=== PATIENT | male | born 1950 | race Caucasian/White ===

== ENCOUNTER → 2017-12-21 13:10 | Outpatient (CLI) | payer MEDICARE, BC, SELFPAY ==
--- NOTE | 2017-12-21 13:22 | CT_ITS ---
CT lung screening EXAM: CT LUNG LOW DOSE WO CONTRAST COMPARISON: 06/21/2016 HISTORY: 67-year-old male with 60 pack-year smoking history asymptomatic ITS.REASON: HX TOBACCO USE ORDERING PHYSICIAN: John Candelaria MD PATIENT AGE: 67 years TECHNIQUE: The exam was performed on a GE Light Speed [address] scanner using 2.90 mGy CTDI. A low dose helical CT CHEST was performed on a multi-detector scanner. All CT scans at the facility use one or more dose reduction, viz: automated exposure control; ma/kV adjustment per patient size (including targeted exams where dose is matched to indication; i.e. head); or iterative reconstruction technique. The LDCT was performed in a facility that meets the criteria for the screening program. Data regarding this exam was submitted to ACR which is an approved registry. The order for this exam indicates that it came as a result of a lung cancer screening counseling shard decision-making visit that included all the elements required of such a visit including smoking cessation. The radiologist interpreting this exam meets the CMS criteria for the LDCT lung cancer screening program. The exam is reported using the Lung-RADS classification scale and reported to the ACR registry. NOTE: This study was performed for the specific purposes of lung cancer screening and is not an alternative to diagnostic chest CT. RADIATION DOSE: CTDI vol(CT dose Index-volume) = 2.90mG DLP (Dose Length Product) = 110.60 mGcm FINDINGS: No change in the 4 mm nodule in the right apex and 5 mm nodule in the posterior aspect of the right upper lobe. Calcified granuloma right upper lobe unchanged. 3 mm nodule left upper lobe noted not changed compared to 12/08/2015. There are extensive coronary artery calcifications. There is pectus carinatum IMPRESSION: 1. Lung RADS Category: 2, benign 2. Other findings: Coronary artery disease RECOMMENDATIONS: 12 month LDCT follow-up
== END ==
PROVIDERS: Family Provider Family Medicine; PCP Family Medicine; Visit Provider Family Medicine
DX: Z12.2 Encounter for screening for malignant neoplasm of respiratory organs (principal); Z87.891 Personal history of nicotine dependence

== ENCOUNTER 2018-07-05 13:00 | Outpatient (RCR) | payer MEDICARE, SELFPAY ==
--- NOTE | 2018-06-25 15:34 | HMH.PTOPEV ---
PT Outpatient Evaluation Rehab PT Outpatient Evaluation Start: 06/25/18 15:26 Freq: Status: Active Protocol: Document 06/25/18 15:27 PHOKAIT (Rec: 06/25/18 15:34 PHORNE [id number]) Electronically Signed By Marcio Calderon, PT 06/25/18 15:27 Outpatient Therapy Subjective History Subjective History Pt is 68 yowm who presents with c/o low back pain worse x ~ 2 mos, with intermittent pain into the left buttock. He reports hx of DDD with chronic low back pain, but current symptoms feel different. He reports no numbness or tingling in his left LE. He also reports that prescribed muscle relaxers and massages help to decrease the pain for short periods. Chief Complaint Pain Symptom Type Ache Sharp Symptoms Relieved By Rest/Positioning Prior Functional Limitations None Current Functional Limitations Lifting Driving Symptom Description Constant but Variable Level of pain today (0-10) 2 Pain scale - at its worst (0-10) 7 Lumbopelvic Eval Palapation tenderness left Lumbar/Sacral Palpation Findings Tenderness Lumbar/Sacral Palpation Overall Comment quad lumborum Accessory Movement L-spine Vertebrae Accessory Movements Central P/A [place] that Elicit Symptoms L2 bilateral L3 bilateral L4 bilateral L5 bilateral Range of Motion Lumbar Spine ROM Reason Not Measured Within Functional Limits Manual Muscle Test Bilateral Knee Extension Strength Grade 5 Normal Knee Flexion Strength Grade 5 Normal Hip Flexion Strength Grade 5 Normal Hip Abduction Strength Grade 5 Normal Hip Adduction Strength Grade 5 Normal Hip External Rotation Strength Grade 5 Normal Hip Internal Rotation Strength Grade 5 Normal Hip Extension Strength Grade 5 Normal Gluteus Shalom Strength Grade 5 Normal Extensor Hallucis Longus Strength Grade 5 Normal Ankle Dorsiflexion Strength Grade 5 Normal Gastronemius/Soleus Strength Grade 5 Normal DTR Rt Patellar 2+ Lt Patellar 2+ Rt Gastroc/Soleus 2+ Lt Gastroc/Soleus 2+ Special Tests Hip Scouring (Quadrant) Test Negative Left Negative Right Hip Robles (RICARDO) Test Negative Left N
== END 2018-07-05 13:05 | disposition home or self-care (01) ==
LOC: PT 13:00
PROVIDERS: Visit Provider Nurse Practitioner Family
DX: M54.5 Low back pain (principal)
CPT/HCPCS: 97010; 97014; 97035; 97110; 97140; 97163; G0283

== ENCOUNTER → 2018-07-12 13:26 | Outpatient (CLI) | payer MEDICARE, SELFPAY ==
--- NOTE | 2018-07-12 13:29 | XR_ITS ---
XR shoulder LT min 2V HISTORY: Left shoulder pain with limited range of motion ITS.REASON: ROTATOR CUFF SYNDROME ORDERING PHYSICIAN: John Candelaria MD PATIENT AGE: 68 years Comparison: None FINDINGS: No fracture or dislocation. No lytic or blastic change. There is normal mineralization. The joint spaces are well-preserved. No significant degenerative/arthritic changes. No erosive changes evident. No subacromial stenosis IMPRESSION: Negative, no acute finding
== END ==
PROVIDERS: PCP Family Medicine; Visit Provider Family Medicine
DX: M75.102 Unspecified rotator cuff tear or rupture of left shoulder, not specified as traumatic (principal)
CPT/HCPCS: 73030

== ENCOUNTER 2018-08-24 13:00 | Outpatient (RCR) | payer MEDICARE, SELFPAY ==
--- NOTE | 2018-08-06 15:58 | HMH.OTOPEV ---
OT Inpatient Evaluation Rehab OT Outpatient Eval Start: 08/06/18 15:26 Freq: Status: Active Protocol: Document 08/06/18 15:34 RMMARANDA (Rec: 08/06/18 15:58 [id number] Electronically Signed By Fatmata Urbina OT 08/06/18 15:34 Outpatient Therapy Subjective History Subjective History Pt is a 68 year old male who reports to therapy for initial evaluation to left shoulder. Pt reports ~2-3 month ago he began having pain in the left shoulder/deltoid area. Pt does not recall a specific injury that would have caused the pain. Pt reports recently he has began having pain in the right shoulder as well, in the same area. 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 Pt demonstrates with a slight decrease in AROM/strength in left shoulder. Pt will continue to be seen twice a week to address these deficits . Pt's right shoulder will be monitored to see if symptoms increase. Chief Complaint Pain Weakness Symptom Type Ache Throb Sharp Dull Stabbing Burning Symptoms Relieved By Rest/Positioning Symptoms Aggravated By Physical Activity Twisting Lifting Prior Functional Limitations None Current Functional Limitations Reaching Lifting Housework Dressing Recreation Activity Symptom Description Intermittent Activity Dependent Level of pain today (0-10) 3 Pain scale - at its best (0-10) 0 Pain scale - at its worst (0-10) 8 Shoulder/Elbow Eval Shoulder Objective Measurements Shoulder ROM Right Shoulder ROM Limitations Pain Shoulder Abduction Active Range of 180 degrees Motion (degrees) Shoulder Flexio
== END 2018-08-24 13:05 | disposition home or self-care (01) ==
LOC: OT 13:00
PROVIDERS: Visit Provider Family Medicine
DX: M75.102 Unspecified rotator cuff tear or rupture of left shoulder, not specified as traumatic (principal)
CPT/HCPCS: 97014; 97035; 97110; 97165; G0283

== ENCOUNTER → 2018-09-10 10:00 | Outpatient (CLI) | payer MEDICARE, SELFPAY ==
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
== END ==
PROVIDERS: PCP Family Medicine; Visit Provider Family Medicine
DX: M75.102 Unspecified rotator cuff tear or rupture of left shoulder, not specified as traumatic (principal)
CPT/HCPCS: 73552

== ENCOUNTER → 2018-09-17 14:17 | Outpatient (CLI) | payer MEDICARE, SELFPAY ==
--- NOTE | 2018-09-17 14:19 | MR_ITS ---
MR shoulder LT wo con Ordering Physician: John Candelaria MD Patient Age: 68 years: Male HISTORY: ITS.REASON: ROTATOR CUFF SYNDROME OF LEFT SHOULDER Left shoulder pain when lifting and raising arm above head. Symptoms 6-8 months. No trauma TECHNIQUE: Multiplanar multisequence imaging performed on 1.5 the MR right. COMPARISON : Previous left shoulder radiograph 07/12/2018 from [facility] No full-thickness rotator cuff tear. Supraspinatus tendon is intact. But with minor increased signal at critical zone which may reflect some minimal tendinopathy. Acromion fairly neutral but there is slight slight narrowing the subacromial space 5.5 mm likely contributes to mild impingement upon supraspinatus complex. Subscapularis. Tendon intact. Infraspinatus tendon appears intact. Muscles rotator cuff remain well-developed and intact. Biceps tendon most likely intact although difficult to visualize just above the bicipital groove Does seem to be abnormal increased signal at at base of superior labrum and at anterosuperior superior labrum glenoid labrum. The signal beneath the labrum is greater than typically-greater undercutting appearance. Overall findings suspect for possible labral tear... Warrant clinical consideration & correlation .. Small joint effusion with fluid extending towards subdeltoid. AC joint. Mild arthropathy mild hypertrophic changes. . IMPRESSION...... Suggestion Mild tendinopathy supraspinatus tendon, but no full-thickness rotator cuff tear.. Slightly narrowed subacromial space. Mild AC joint arthropathy Findings are suspect for minimal tear at superior labrum, extending towards superior/anterior labrum.. Clinical correlation required..
== END ==
PROVIDERS: PCP Family Medicine; Visit Provider Family Medicine
DX: M75.102 Unspecified rotator cuff tear or rupture of left shoulder, not specified as traumatic (principal)
CPT/HCPCS: 73221

== ENCOUNTER → 2019-02-04 07:41 | Outpatient (CLI) | payer MEDICARE, SELFPAY ==
--- NOTE | 2019-02-04 07:45 | CT_ITS ---
CT lung screening EXAM: CT LUNG LOW DOSE WO CONTRAST HISTORY: 60 pack-year smoking history, asymptomatic for lung cancer ITS.REASON: HX TOBACCO USE ORDERING PHYSICIAN: Andreina Saravia APRN PATIENT AGE: 68 years COMPARISON: None TECHNIQUE: The exam was performed on a GE Light Speed [address] scanner using 2.90 mGy CTDI. A low dose helical CT CHEST was performed on a multi-detector scanner. All CT scans at the facility use one or more dose reduction, viz: automated exposure control, ma/kV adjustment per patient size (including targeted exams where dose is matched to indication, i.e. head), or iterative reconstruction technique. The LDCT was performed in a facility that meets the criteria for the screening program. Data regarding this exam was submitted to ACR which is an approved registry. The order for this exam indicates that it came as a result of a lung cancer screening counseling shard decision-making visit that included all the elements required of such a visit including smoking cessation. The radiologist interpreting this exam meets the CMS criteria for the LDCT lung cancer screening program. The exam is reported using the Lung-RADS classification scale and reported to the ACR registry. NOTE: This study was performed for the specific purposes of lung cancer screening and is not an alternative to diagnostic chest CT. RADIATION DOSE: CTDI vol(CT dose Index-volume) = 2.90mG DLP (Dose Length Product) = 115.94 mGcm FINDINGS: Diffuse coronary artery calcifications are noted. There is 2 cm isodensity projecting off the posterior aspect of the right kidney and may be due to a developing cyst which could be confirmed with ultrasound. COPD. Pectus carinatum No change 4 mm nodule right apex IMPRESSION: 1. Lung RADS Category: 2, benign 2. Other findings: COPD, coronary artery disease, possible right renal cyst which confirmed with ultrasound RECOMMENDATIONS: 12 month LDCT follow-up Consider right renal ultrasound
== END ==
PROVIDERS: PCP Nurse Practitioner Family; Visit Provider Nurse Practitioner Family
DX: Z12.2 Encounter for screening for malignant neoplasm of respiratory organs (principal); Z87.891 Personal history of nicotine dependence

== ENCOUNTER 2019-05-01 08:30 | Outpatient (RCR) | payer MEDICARE, SELFPAY ==
--- NOTE | 2019-04-05 09:47 | HMH.PTOPEV ---
PT Outpatient Evaluation Rehab PT Outpatient Evaluation Start: 04/05/19 08:54 Freq: Status: Active Protocol: Document 04/05/19 09:40 WINIFRED (Rec: 04/05/19 09:47 PHORTIANNA [id number]) Electronically Signed By Marcio Calderon, PT 04/05/19 09:40 Outpatient Therapy Subjective History Subjective History Pt is 69 yowm who presents with c/o pain in post left hip x 2-3 wks with insidious onset. He now reports pain also in post left thigh and post left calf. He has tenderness to palpation only on lateral left thigh and no c /o numbness or tingling. He reports intermittent sharp pains and pain is worse with prolonged walking. He has hx of DDD, CAD, COPD, GERD, B partial knee replacement, HTN, HL. Chief Complaint Pain Symptom Type Ache,Throb,Sharp Symptoms Relieved By Rest/Positioning Symptoms Aggravated By Physical Activity,Walking Prior Functional Limitations None Current Functional Limitations Walking Symptom Description Constant but Variable Level of pain today (0-10) 3 Pain scale - at its worst (0-10) 6 Hip/Knee Eval Palpation Tenderness left Hip Palpation Findings Tenderness MMT Hip Flexion Strength Grade 4 Good Hip Abduction Strength Grade 4 Good Hip Adduction Strength Grade 5 Normal Hip Extension Strength Grade 5 Normal Gluteus Shalom Strength Grade 5 Normal Hip External Rotation Strength Grade 5 Normal Hip Internal Rotation Strength Grade 5 Normal Knee Extension Strength Grade 5 Normal Knee Flexion Strength Grade 5 Normal Special Tests Hip Bowstring (Cram) Test Negative Left,Negative Right Sciatic Nerve Tension Test Negative Left,Negative Right Hip Scouring (Quadrant) Test Negative Left,Negative Right Outpatient Therapy Assessment Impairments Problems/Impairmments Palpation Tenderness,Impaired Strength,Impaired Walking, Impaired Recreational Activities,Subjective C/O Pain ,Impaired Self Care/Self Management Prognosis Rehab Potential Good Clinical Impression Consistent with Diagnosis Yes Short Term Goals Number of Weeks 4 Decreased Palpation Tenderness Yes: to min Increase Strength Yes: left LE 4+/5 throughout Increase Ability
== END 2019-05-01 08:35 | disposition home or self-care (01) ==
LOC: PT 08:30
PROVIDERS: PCP Nurse Practitioner Family; Visit Provider Family Medicine
DX: M25.552 Pain in left hip (principal); M76.32 Iliotibial band syndrome, left leg
CPT/HCPCS: 97010; 97014; 97033; 97035; 97110; 97140; 97163; G0283

== ENCOUNTER → 2020-03-24 09:57 | Outpatient (CLI) | payer MEDICARE, SELFPAY ==
--- NOTE | 2020-03-24 | MR_ITS ---
PROCEDURE: MR LUMBAR SPINE WO CON CLINICAL INDICATION: DDD Low back pain COMPARISON: No exams were available for comparison TECHNIQUE: Standard multiplanar multiecho sequences are performed without contrast. 3-D MIP and myelographic images are also rendered and reviewed FINDINGS: There is normal alignment. The spinal cord ends at the L1 level. There is multilevel lumbar spondylosis as detailed below. T11-T12: Mild degenerative disc disease with anterior osteophytes. T12-L1: Mild degenerative disc disease with anterior osteophytes and minimal bulging disc. L1-L2: Degenerate disc disease with minimal bulging disc with facet ligamentum hypertrophy and anterior osteophytes. L2-L3: Degenerate disc disease with bulging disc with facet ligamentum hypertrophy with 3 mm retrolisthesis of L2. Mild bilateral lateral recess and foraminal narrowing. L3-L4: Degenerate disc disease with bulging disc with moderate facet and ligamentum hypertrophy causing transverse narrowing of the canal. There is moderate to severe bilateral lateral recess and foraminal narrowing. There is 3 mm retrolisthesis of L3 on L4 L4-5: Degenerative disc disease with bulging disc along with moderate facet and ligamentum hypertrophy with transverse narrowing of the canal and moderate to severe bilateral lateral recess and foraminal narrowing. The canal measures 8 mm transverse L5-S1: Degenerative disc disease with bulging disc along with moderate right facet and ligamentum hypertrophy and moderate to severe left facet and ligamentum hypertrophy with resultant moderate to severe right foraminal narrowing and severe left foraminal narrowing along with moderate bilateral lateral recess narrowing. No extruded herniated disc is evident. There are bilateral renal cortical cysts IMPRESSION: Abnormal MRI of the lumbar spine with multilevel lumbar spondylosis with resultant transverse narrowing of the canal, lateral recess and foraminal narrowing. Please see above for detailed description at each level. Dictated by: Peterson Cohn MD 03/25/2020 12:23 Peterson Cohn MD in [place] 03/25/2020 12:23
== END ==
PROVIDERS: PCP Family Medicine; Visit Provider Anesthesiology Pain Medicine
DX: M53.9 Dorsopathy, unspecified (principal)
CPT/HCPCS: 72148; 76376

== ENCOUNTER → 2020-08-28 13:02 | Outpatient (CLI) | payer MEDICARE, SELFPAY ==
--- NOTE | 2020-08-28 13:07 | US_ITS ---
APPROVED REPORT Exam Type: Lower Extremity Segmental Pressures Building Construction Supervisor: Andreina Mills RVT Indications Claudication: Bilaterally Cyanosis PT'S 2ND TOE ON RIGHT FOOT IS BLUISH COLORED X SEVERAL MTHS Risk Factors Hypertension Hyperlipidemia History of Smoking Pressures/Indices Right Indices Left Indices Brachial 134.00 mmHg Brachial 112.00 mmHg Low Thigh 143.00 mmHg 1.07 Low Thigh 129.00 mmHg 0.96 Calf 138.00 mmHg 1.03 Calf 145.00 mmHg 1.08 Ankle(PT) 151.00 mmHg 1.13 Ankle(PT) 136.00 mmHg 1.01 Ankle(DP) 112.00 mmHg 0.84 Ankle(DP) 112.00 mmHg 0.84 Digit 62.00 mmHg 0.46 Digit 64.00 mmHg 0.48 Findings RT OWEN:1.13 LT OWEN:1.01 RT TBI:0.46 LT TBI:0.48 NORMAL WAVEFORMS BILATERAL NORMAL PULSES BILATERAL Conclusion RT OWEN:1.13 LT OWEN:1.01 RT TBI:0.46 LT TBI:0.48 NORMAL WAVEFORMS BILATERAL NORMAL PULSES BILATERAL Normal appearing resting noninvasive lower extremity arterial study. Electronically signed by : Peterson Cohn MD 08/28/2020 16:50:25
== END ==
PROVIDERS: PCP Family Medicine; Visit Provider Family Medicine
DX: I70.213 Atherosclerosis of native arteries of extremities with intermittent claudication, bilateral legs (principal)
CPT/HCPCS: 93923

== ENCOUNTER → 2021-06-10 08:16 | Outpatient (CLI) | payer MEDICARE, SELFPAY ==
--- NOTE | 2021-06-10 08:19 | CT_ITS ---
PROCEDURE: CT LUNG SCREENING CLINICAL INDICATION: HX OF NICOTINE DEPENDENCE COMPARISON: CT LUNGSCREEN CT lung screening from 02/04/2019 TECHNIQUE: The exam was performed on a GE Light Speed [address] scanner using 2.90 mGy CTDI. A low dose helical CT CHEST was performed on a multi-detector scanner. All CT scans at the facility use one or more dose reduction, viz: automated exposure control, ma/kV adjustment per patient size (including targeted exams where dose is matched to indication, i.e. head), or iterative reconstruction technique. The LDCT was performed in a facility that meets the criteria for the screening program. Data regarding this exam was submitted to ACR which is an approved registry. The order for this exam indicates that it came as a result of a lung cancer screening counseling shard decision-making visit that included all the elements required of such a visit including smoking cessation. The radiologist interpreting this exam meets the [facility] criteria for the LDCT lung cancer screening program. The exam is reported using the Lung-RADS classification scale and reported to the ACR registry. NOTE: This study was performed for the specific purposes of lung cancer screening and is not an alternative to diagnostic chest CT. RADIATION DOSE: CTDI vol(CT dose Index-volume) = 2.90mG DLP (Dose Length Product) = 110.46 mGcm FINDINGS: COPD changes. Stable 4 mm nodule right apex. No new suspicious nodules. OTHER FINDINGS: Coronary artery calcifications and or stents 2 cm right renal cyst. There is anterior bowing the mid aspect of the body of the sternum not significantly changed. Degenerative changes thoracic spine. IMPRESSION: Lung-RADS Category 2 Benign Appearance or Behavior Follow-up: Continue annual screening with LDCT in 12 months Dictated by: Peterson Cohn MD 06/19/2021 06:38 Peterson Cohn MD in [place] 06/19/2021 06:38
== END ==
PROVIDERS: PCP Family Medicine; Visit Provider Family Medicine
DX: Z87.891 Personal history of nicotine dependence (principal); Z12.2 Encounter for screening for malignant neoplasm of respiratory organs
CPT/HCPCS: 71271

== ENCOUNTER → 2021-07-29 16:18 | Outpatient (CLI) | payer MEDICARE, SELFPAY | PROVIDERS: Visit Provider Nurse Practitioner | DX: Z20.822 Contact with and (suspected) exposure to COVID-19 (principal) | CPT/HCPCS: C9803; U0003; U0005 ==

== ENCOUNTER → 2021-09-20 16:00 | Outpatient (CLI) | payer MEDICARE, SELFPAY | PROVIDERS: Visit Provider Urology | DX: N39.0 Urinary tract infection, site not specified (principal) | CPT/HCPCS: 87086 ==

== ENCOUNTER → 2021-09-24 14:07 | Outpatient (CLI) | payer MEDICARE, SELFPAY ==
--- NOTE | 2021-09-24 14:07 | CT_ITS ---
FINAL REPORT TECHNIQUE: Axial images through the abdomen and pelvis were performed without contrast. Coronal reformatted images were submitted. This study was performed with techniques to keep radiation doses as low as reasonably achievable, (ALARA). Individualized dose reduction techniques using automated exposure control or adjustment of mA and/or kV according to the patient's size were employed. CLINICAL HISTORY: gross hematuria FINDINGS: Abdomen: The lung bases are clear. The liver parenchyma is homogeneous. The gallbladder is present. The spleen, pancreas, and adrenals are unremarkable. There is a 2.5 cm benign-appearing cyst in the right kidney. There is extensive descending and sigmoid colon diverticulosis. Pelvis: The urinary bladder is unremarkable. The appendix is normal. There is no pelvic mass or inflammation. There are diffuse hypertrophic changes of degenerative disc disease throughout the lumbar spine. IMPRESSION: Benign-appearing right renal cyst. Extensive diverticulosis without evidence of diverticulitis. Reviewed, Interpreted and Dictated by Ismael Soriano MD Transcribed by Josh Joe Authenticated by Ismael Soriano MD on 09/24/2021 03:40:[address] [facility]
== END ==
PROVIDERS: PCP Family Medicine; Visit Provider Urology
DX: R31.0 Gross hematuria (principal)
CPT/HCPCS: 74176

== ENCOUNTER → 2021-09-29 10:06 | Outpatient (CLI) | payer MEDICARE, SELFPAY | PROVIDERS: Visit Provider Urology | DX: R31.0 Gross hematuria (principal); Z01.812 Encounter for preprocedural laboratory examination; Z11.52 Encounter for screening for COVID-19 | CPT/HCPCS: C9803; U0003; U0005 ==

== ENCOUNTER 2021-10-01 10:34 | Day surgery (SDC) | payer MEDICARE, SELFPAY ==
[2021-09-29 10:35] VITALS: BMI 32.5
[2021-10-01 10:55] VITALS: BP 156/83; PULSE 90; RESP 18; TEMP 36.8; O2SAT 98
[2021-10-01 11:19] VITALS: BP 137/97; PULSE 87; RESP 16; TEMP 36.6; O2SAT 96
--- NOTE | 2021-10-01 13:16 | HMH.OPNOTE ---
Date of procedure: 10/01/21 Pre-op Diagnosis:: Gross hematuria Post-op Diagnosis:: BPH with large prostatic adenoma Procedure performed:: Cystoscopy Surgeon:: Harsha Gonzalez MD Anesthesia: local Estimated blood loss (mL): 0 Clinical Note:: 71-year-old white male with recent gross hematuria. Patient presents for urologic evaluation today but states he has seen no visible blood for a week. Recent urine culture was negative in the office in the CT scan shows a right simple renal cyst and prostatic enlargement. Operative findings:: Cystoscopy revealed no evidence of mucosal abnormalities or bladder tumors. Bladder shows no evidence of trabeculation or cellule formation. There is a large prostate with a large adenoma projecting mainly from the patient's right prostatic lobe. No significant median lobe was noted. Operative note:: Patient taken to the operating suite after informed consent was obtained. On the stretcher he was prepped and draped in the standard surgical fashion and 2% lidocaine placed into the urethra. After 5 minutes the clamp removed and the flexible scope passed into the urethral meatus into the prostatic urethra which showed bilobar hyperplasia. The bladder was entered and examined in a systematic fashion. There is no evidence of mucosal abnormalities or bladder tumors. No trabeculation or cellules or diverticula were noted. The ureteral orifices were well away from the bladder neck with clear efflux of urine. The scope was retroflexed showing a large adenoma projecting off the right side of the prostatic urethra and projecting somewhat into the bladder lumen. Scope then pulled back to the prostatic urethra and again the prostatic adenoma was noted without a significant median lobe. Scope removed patient tolerated procedure well. We discussed the findings today and options were discussed including resection of the adenoma but patient is a little reluctant to undergo another surgery as he had some recent back surgery. We will place him on tamsulosin and see him back next month in follow-up. Finasteride may be added pending a PSA. Condition: stable Disposition: same day Specimens:: None Complications:: None
== END 2021-10-01 11:27 | disposition home or self-care (01) ==
LOC: OUTP 10:36
PROVIDERS: PCP Family Medicine; Visit Provider Urology
DX: D29.1 Benign neoplasm of prostate (principal); R31.0 Gross hematuria; K21.9 Gastro-esophageal reflux disease without esophagitis; E78.5 Hyperlipidemia, unspecified; I10 Essential (primary) hypertension; Z82.3 Family history of stroke; Z79.899 Other long term (current) drug therapy
CPT/HCPCS: 52000

== ENCOUNTER → 2022-05-16 11:46 | Outpatient (CLI) | payer MEDICARE, SELFPAY ==
[2022-05-16 12:10] LABS: Basophils # 0.2 K/mm3 (0-0.2); Eosinophils # 0.1 K/mm3 (0.0-0.4); Eosinophils % 1.1 % (0.1-12.0); Hematocrit 51.3 % (42.0-52.0); Hemoglobin 17.3 g/dL (14.1-18.0); Lymphocytes # 1.8 K/mm3 (0.7-4.5); Lymphocytes % 27.2 % (10-50); Mean Corpuscular HGB Conc 33.7 g/dL (31.8-35.4); Mean Corpuscular Hemoglobin 31.7 pg (27.0-31.2); Mean Corpuscular Volume 94.3 fl (80-94); Mean Platelet Volume 9.3 fl (7.4-10.4); Monocytes # 0.5 K/mm3 (0.1-1.0); Neutrophils # 4.1 K/mm3 (1.8-7.8); Neutrophils % 60.7 % (37.0-80.0); Platelet Count 264 K/mm3 (142-424); Red Blood Count 5.45 M/mm3 (4.60-6.20); Red Cell Distribution Width 13.2 % (11.5-17.5); White Blood Count 6.7 K/mm3 (4.8-10.8)
[2022-05-16 12:34] LABS: Chloride 98 mmol/L (98-107); Potassium 3.8 mmoL/L (3.5-5.1); Sodium 138 mmol/L (136-145)
[2022-05-16 12:36] LABS: Alanine Aminotransferase 22 U/L (12-78); Aspartate Amino Transferase 35 U/L (17-59)
[2022-05-16 12:37] LABS: Albumin Level 4.9 g/dl (3.5-5.0); Alkaline Phosphatase 68 U/L (38-126); Anion Gap 18.8 mEq/L (5-15); Bilirubin,Total 0.5 mg/dl (0.2-1.3); Calcium 9.8 mg/dl (8.4-10.2); Carbon Dioxide 25 mmol/L (22.0-30.0); Chol/HDL Ratio 2.3 (1-3.5); Cholesterol 153 mg/dl (140-200); Globulin 2.5 g/dL (1.3-3.2); Glucose 106 mg/dl (74-100); HDL Cholesterol 67 mg/dl (40-60); Total Protein,Serum 7.4 g/dl (6.3-8.2); Triglycerides 111 mg/dl (30-150); VLDL Cholesterol 22 mg/dL (0-40)
[2022-05-16 12:50] LABS: Direct LDL Cholesterol 57.07 mg/dL (100-129)
[2022-05-16 12:52] LABS: Blood Urea Nitrogen 21 mg/dl (9-20); Estimated Glomerular Filt Rate 66 ml/min (>60); GFR (African American) 80 ML/MIN (>60)
[2022-05-16 13:06] LABS: Hemoglobin A1C 5.8 % (4.0-6.0)
[2022-05-16 13:15] LABS: Prostate Specific Ag Screen 2.6 ng/ml (0.0-4.0)
== END ==
PROVIDERS: PCP Family Medicine; Visit Provider Family Medicine
DX: E78.5 Hyperlipidemia, unspecified (principal); I10 Essential (primary) hypertension; I49.9 Cardiac arrhythmia, unspecified; R73.03 Prediabetes; Z12.5 Encounter for screening for malignant neoplasm of prostate
CPT/HCPCS: 36415; 80053; 80061; 83036; 84443; 85025; G0103

== ENCOUNTER → 2022-06-07 06:42 | Outpatient (CLI) | payer MEDICARE, SELFPAY ==
--- NOTE | 2022-06-07 06:43 | CA_ITS ---
APPROVED REPORT EXAM: Comprehensive 2D, Doppler, and color-flow Echocardiogram Application Development Liaison: Andreina Mills RVT Ht: 5 ft 9 in Wt: 215lbs BSA: 2.13 BP: 122/80 mmHg Indications: CP,RBBB,ABN EKG,HTN,SOA,HLD,EX SMOKER 2D Dimensions LVOT 2.37 cm (M/F) 1.5-2.5 LA Volume 10.90 mL LA Volume Index 5.11 mL/m2 (M/F) 16-34 M-Mode Dimensions RVDd 2.80 cm (0.9-2.6) LA Diam 3.96 cm (1.9-4.0) LVDd 5.38 cm (3.5-5.7) Ao Diam 3.22 cm (2.0-3.7) LVDs 3.77 cm (3.5-5.7) IVSd 1.06 cm (0.6-1.1) PWd 0.76 cm (0.6-1.1) EF (Teich) 56.60% FS 29.90% EDV (Teich) 140.10 mL TAPSE 2.29 (<1.7) ESV (Teich) 60.80 mL LV Diastology E Decel Time 253.00 (160-240 msec) E/A Ratio 0.8 MED E' 5.80 (< 7 cm/sec) E'/MED E' Ratio 16.45 (>14) LAT E' 5.10 (<10 cm/sec) E/LAT E' Ratio 18.71 (>14) Aortic Valve AI PHT 672.00 ms AO Peak GR. 10.70 mmHg Mitral Valve MV E Max Ousmane. 95.00 (40-130 cm/s) MV A Velocity 121.00 (40-130 cm/s) E/A Ratio 0.79 MV Decel. Time 253.00 (160-240 ms) MV PHT 74.00 ms Pulmonary Valve PV Peak Velocity 63.00 (50-150 cm/s) Tricuspid Valve TR P. Velocity 124.00 cm/s RAP Estimate 10.00 mmHg RVSP 16.20 mmHg Left Ventricle Left atrium is mildly enlarged, left ventricle is normal size, mild concentric left ventricular hypertrophy, estimated ejection fraction 55% with no regional wall motion abnormality, grade 1 diastolic dysfunction seen without tissue Doppler evidence of wrist left atrial pressure. Right Ventricle Right atrium and right ventricle are mildly enlarged with normal contractility. Aortic Valve Aortic valve is thickened and calcified without aortic stenosis, there is mild aortic insufficiency. Mitral Valve Mitral valve is grossly normal, there is mild mitral regurgitation. Tricuspid Valve Tricuspid valve grossly normal, there is mild tricuspid regurgitation, tricuspid regurgitation jet velocity is inadequate for calculation of the right ventricular systolic pressure. Pulmonic Valve Pulmonic valve is poorly visualized. Great Vessels Aortic root is normal size. Inferior vena cava is poorly visualized. Pericardium No significant pericardial effusion noted. Conclusion 1. Mild biatrial enlargement, normal left ventricular size, mild concentric left ventricular hypertrophy, estimated ejection fraction 55% with no regional wall motion abnormality, grade 1 diastolic dysfunction seen without tissue Doppler evidence of raise left atrial pressure. 2. Mildly enlarged right ventricle with normal contractility. 3. Mild aortic, mild mitral and tricuspid regurgitation. 4. No significant pericardial effusion. 5. Inferior vena cava is poorly visualized. Electronically signed by : Braydon Zamarripa MD 06/07/2022 19:47:18
--- NOTE | 2022-06-07 06:43 | CA_ITS ---
APPROVED REPORT Exam: Pharmacologic Technologist: Bailey Arnold, Ht: 5 ft 9 in Wt: 215 lbs BSA: 2.13 m2 HR: 58 bpm BP: 122/65 mmHg Rhythm: SINUS DEVON, 1 DEGREE AVB, INCOMPLETE RBBB, CANNOT R/O OLD INF [place] Medical History Medical History: HTN, Hyperlipidemia, Diabetes Medications: Omeprazole,,,,, Aspirin,,,,, Simvastatin,,,,, Metformin,,,,, TAMSULOSIN,,,,, MeLOXICAM,,,,, Trazodone,,,,, Valsartan-HCTZ,,,,, DOxyLAMINE succinate,,,,, Allergies: OXYCODONE Cardiac Risk Factors: HTN, , Hyperlipidemia, Diabetes , FHX of CAD Stress Test Details Test: LEXISCAN HR Resting HR: 60 bpm Max Heart Rate (APMHR): 148.788734 bpm Max HR Achieved: 82 bpm Target HR (85% APMHR): 125.595908 bpm % of APMHR: 55.41 Recovery HR: 68 bpm BP Resting BP: 122/65 mmHg Max BP: 133/72 mmHg Recovery BP: 119.0/68.0 mmHg ECG Resting ECG: SINUS DEVON, 1 DEGREE AVB, INCOMPLETE RBBB, CANNOT R/O OLD INF [place] Clinical Exercise duration: 04:00 min Highest Stage Achieved: Exercise capacity: 1.0 METs Stress ECG Conclusion PT HAD NAUSEA, MILD SOA. NO CP. OVV PVC NS T WAVE CHANGES IN LEAD II NON DIAGNOSTIC LEXISCAN STRESS MYOVIEW IMAGES REPORTED SEPARATELY Electronically signed by : Braydon Zamarripa MD 06/08/2022 16:20:15
--- NOTE | 2022-06-07 06:43 | NM_ITS ---
APPROVED REPORT Exam: Nuclear Stress Test Indication: Chest pain, SOB, HTN, High cholesterol, Family history Patient Location: Outpatient Stress Tech: Bailey Conner [place] Tech:Tavia العراقي, ARRT, RT (R)(N) Ht: 5 ft 9 in Wt: 212 lbs HR: 60 bpm BP: 122/65 mmHg BSA: 2.12 m2 TID: 1.20 BMI: 31.3 History: Chest pain, SOB, HTN, High cholesterol, Family history Procedure: Patient received a 0.4 mg of intravenous Lexiscan, resting heart rate 60 bpm, resting blood pressure 122/65 mmHg, with Lexiscan maximum heart rate achived was 82 bpm which is Less than 85 % of the maximum predicted heart rate and blood pressure was 133/72 mmHg. With Lexiscan, patient denied any complaint of chest pain. Electrocardiogram Resting electrocardiogram shows sinus rhythm right bundle branch block, with Lexiscan there is less than 1.[address] segment depression noted from the baseline EKG. The EKG portion of the Lexiscan is nondiagnostic. Cardiac Stress and Resting SPECT Images: Cardiac Stress and Resting SPECT images were obtained using technetium 99m Myoview 30.8 mCi stress and 10.95 mCi at rest. Gated SPECT analysis of segmental wall motion and calculation of the ejection fraction also done. Cardiac stress and resting SPECT images show reversible ischemia involving the inferior wall, computer derived ejection fraction is 52% with no regional wall motion abnormality, right ventricle is normal size and contractility. Conclusion: 1. The EKG portion of the Lexiscan is nondiagnostic. 2. Scintigraphic evidence of reversible ischemia involving the inferior wall, computer derived ejection fraction is 52% with no regional wall motion abnormality, right ventricle is normal size and contractility. 3. Abnormal Lexiscan Myoview study. Electronically signed by : Braydon Zamarripa MD 06/08/2022 16:22:40
--- NOTE | 2022-06-07 08:39 | HMH.ITSHM ---
Current Home Medications as stated by this patient Ronn Yang or litigation claim representative. []VALSARTAN TRAZODONE TAMSULOSIN SIMVASTATIN OMEPRAZOLE METOPROLOL METFORMIN MELOXICAM DOXYLAMINE ASA
== END ==
PROVIDERS: PCP Family Medicine; Visit Provider Physician Assistant
DX: E78.5 Hyperlipidemia, unspecified (principal); I10 Essential (primary) hypertension; I45.10 Unspecified right bundle-branch block; R06.09 Other forms of dyspnea; R07.89 Other chest pain; R73.03 Prediabetes; R94.31 Abnormal electrocardiogram [ECG] [EKG]; Z82.49 Family history of ischemic heart disease and other diseases of the circulatory system; Z87.891 Personal history of nicotine dependence
CPT/HCPCS: 78452; 93017; 93306; A9502; J2785

== ENCOUNTER → 2022-06-16 12:12 | Outpatient (CLI) | payer MEDICARE, SELFPAY ==
[2022-06-16 12:43] LABS: Basophils # 0.1 K/mm3 (0-0.2); Basophils % 1.3 % (0.1-2.0); Eosinophils # 0.1 K/mm3 (0.0-0.4); Eosinophils % 1.4 % (0.1-12.0); Hematocrit 51.2 % (42.0-52.0); Hemoglobin 16.2 g/dL (14.1-18.0); Lymphocytes # 2.1 K/mm3 (0.7-4.5); Lymphocytes % 30.7 % (10-50); Mean Corpuscular HGB Conc 31.7 g/dL (31.8-35.4); Mean Corpuscular Hemoglobin 30.7 pg (27.0-31.2); Mean Corpuscular Volume 96.8 fl (80-94); Mean Platelet Volume 9.7 fl (7.4-10.4); Monocytes # 0.5 K/mm3 (0.1-1.0); Monocytes % 6.7 % (1.7-9.3); Neutrophils % 59.9 % (37.0-80.0); Platelet Count 287 K/mm3 (142-424); Red Blood Count 5.29 M/mm3 (4.60-6.20); Red Cell Distribution Width 14.2 % (11.5-17.5); White Blood Count 6.7 K/mm3 (4.8-10.8)
[2022-06-16 13:13] LABS: Anion Gap 16.4 mEq/L (5-15); Blood Urea Nitrogen 20 mg/dl (9-20); Calcium 10.1 mg/dl (8.4-10.2); Carbon Dioxide 32 mmol/L (22.0-30.0); Chloride 98 mmol/L (98-107); Estimated Glomerular Filt Rate 60 ml/min (>60); GFR (African American) 72 ML/MIN (>60); Glucose 110 mg/dl (74-100); Potassium 4.4 mmoL/L (3.5-5.1); Sodium 142 mmol/L (136-145)
== END ==
PROVIDERS: PCP Family Medicine; Visit Provider Physician Assistant
DX: E78.5 Hyperlipidemia, unspecified (principal); I10 Essential (primary) hypertension; I45.10 Unspecified right bundle-branch block; R06.09 Other forms of dyspnea; R73.03 Prediabetes; R94.31 Abnormal electrocardiogram [ECG] [EKG]; R94.39 Abnormal result of other cardiovascular function study; Z82.49 Family history of ischemic heart disease and other diseases of the circulatory system; Z87.891 Personal history of nicotine dependence; I63.9 Cerebral infarction, unspecified
CPT/HCPCS: 36415; 80048; 85025

== ENCOUNTER 2022-06-21 08:10 | Day surgery (SDC) | payer MEDICARE, SELFPAY ==
[2022-06-21] VITALS (13 sets, daily range): BP systolic 92–145; BP diastolic 61–103; PULSE 59–73; RESP 16–18; TEMP 37; O2SAT 90–98; BMI 32.1
--- NOTE | 2022-06-21 07:08 | IR_ITS ---
APPROVED REPORT Patient Location: Outpatient PROCEDURES Left heart catheterization Left ventriculogram Selective coronary angiography Drug-eluting stent deployment to the proximal ID Drug-eluting stent deployment to the ostial proximal mid dominant right coronary INDICATION Accelerated angina pectoris, Coronary disease, Abnormal Myoview Informed consent was obtained prior to the procedure. COMPLICATIONS None Estimated Blood Loss: Less than 10 mls TECHNIQUE One percent lidocaine used to anesthetize the right anterior aspect of the wrist. The right radial artery was accessed via the Seldinger technique. A 6 Divehi sheath was placed in the right radial artery. 2.5 mg of verapamil, 800 mcg of nitroglycerin, 1mg Lidocaine and 5000 U Heparin were given through the arterial sheath. The papa catheter was also used to perform selective coronary angiogram. At the end the diagnostic angiogram therapeutic heparin was administered giving a therapeutic ACT and the guide catheter was placed on left main artery followed by a Choice PT extra-support wire being placed on the LAD. A 4 mm x 12 mm resolute Ellsworth stent was deployed at 18 jack reducing the severe calcified concentrically disease stenosis to 0%. BUNNY-3 flow was present before and after the procedure. Following this the catheter was pulled out of the left main artery placed in the right coronary artery and the same Choice PT extra-support wire was placed distally. A 3 mm x 38 mm resolute Ellsworth stent was deployed at 26 jack in the ostial and proximal segment. An additional 3.5 x 22 mm resolute Josef stent was placed distal to the first stent and then deployed at 18 jack. The balloon was brought back and deployed at 20 and 24 jack up and down the first 3 mm stent placed in the right coronary artery. BUNNY-3 flow was present before and after the procedure. At the end of procedure the apparatus was removed the sheath was removed good hemostasis was achieved using TR banding patient was transferred to the postop putting in stable condition ANGIOGRAPHIC RESULTS The left main artery Normal The left anterior descending artery Has a concentric 80% calcified ring stenosis followed by significant poststenotic dilatation. The remaining LAD has mild diffuse 20% stenoses. In the distal segment there is a concentric 40% stenosis and additional 50% stenosis as the LAD wraps the apex. The circumflex artery Is nondominant and has a 40% stenosis in a large 3 mm first obtuse marginal artery The right coronary artery Is a dominant vessel and has proximal hazy 70% stenosis followed by additional 40% stenoses followed by concentric 70% stenosis immediately proximal to an RV marginal branch The BECKETT ventriculogram reveals Not performed The left ventricular end-diastolic pressure Not measured IMPRESSION Severe two-vessel coronary artery disease as described above with successful stenting of the proximal LAD and ostial proximal mid dominant right coronary artery PLAN 1. Dual antiplatelet therapy 2. Risk factor modification 3. LDL less than 55 to be achieved with high intensity statin 4. Avoidance of tobacco products 5. Cardiac rehabilitation Electronically signed by : Shar Castañeda MD 06/21/2022 15:17:06
[2022-06-21 11:51] LABS: CATHL Activated Clotting Time 305 SEC (74-125)
--- NOTE | 2022-06-21 14:33 | HMH.PHACL ---
PHA Bag Machine Operator Helper Discharge Med Skating Rink Manager: Ronn Yang has received discharge medication counseling on the following medications: -ASPIRIN (ON PREVIOUSLY, NO QUESTIONS) -BRILINTA (ON PREVIOUSLY, MENTIONED A NEW RX WAS SENT TO CLINIC PHARMACY, ASKED IF THEY WOULD BRING UP, YES) -METOPROLOL SUCCINATE (ON PREVIOSULY, ASKED IF HE SHOULD CONTINUE, YES AND ASK CARDIOLOGY IF QUESTIONS PERSIST) -SIMVASTATIN (ON PREVIOUSLY, NO QUESTIONS) -VALSARTAN-HCTZ (ON PREVIOUSLY, NO QUESTIONS) -METFORMIN (HOLD UNTIL 06/23/22)
== END 2022-06-21 14:47 | disposition home or self-care (01) ==
PROVIDERS: PCP Family Medicine; Visit Provider Internal Medicine
DX: E78.5 Hyperlipidemia, unspecified (principal); I10 Essential (primary) hypertension; I25.118 Atherosclerotic heart disease of native coronary artery with other forms of angina pectoris; I45.10 Unspecified right bundle-branch block; R06.09 Other forms of dyspnea; R73.03 Prediabetes; R94.31 Abnormal electrocardiogram [ECG] [EKG]; R94.39 Abnormal result of other cardiovascular function study; Z82.49 Family history of ischemic heart disease and other diseases of the circulatory system; Z87.891 Personal history of nicotine dependence
CPT/HCPCS: 85347; 92928; 93458; 99152; 99153; C1725; C1769; C1874; C1876; C9600; J1644; Q9967

== ENCOUNTER → 2022-07-05 08:21 | Outpatient (CLI) | payer MEDICARE, SELFPAY ==
[2022-07-05 09:05] LABS: Basophils # 0.2 K/mm3 (0-0.2); Eosinophils # 0.2 K/mm3 (0.0-0.4); Eosinophils % 2.2 % (0.1-12.0); Hematocrit 51.6 % (42.0-52.0); Lymphocytes # 2.7 K/mm3 (0.7-4.5); Lymphocytes % 29.4 % (10-50); Mean Corpuscular HGB Conc 32.9 g/dL (31.8-35.4); Mean Corpuscular Volume 94.3 fl (80-94); Mean Platelet Volume 9.2 fl (7.4-10.4); Monocytes # 0.6 K/mm3 (0.1-1.0); Monocytes % 6.9 % (1.7-9.3); Neutrophils # 5.4 K/mm3 (1.8-7.8); Neutrophils % 59.5 % (37.0-80.0); Platelet Count 282 K/mm3 (142-424); Red Blood Count 5.48 M/mm3 (4.60-6.20); Red Cell Distribution Width 13.1 % (11.5-17.5)
[2022-07-05 10:56] LABS: Chloride 100 mmol/L (98-107); Potassium 3.9 mmoL/L (3.5-5.1); Sodium 137 mmol/L (136-145)
[2022-07-05 10:59] LABS: Anion Gap 12.9 mEq/L (5-15); Blood Urea Nitrogen 28 mg/dl (9-20); Calcium 10.2 mg/dl (8.4-10.2); Carbon Dioxide 28 mmol/L (22.0-30.0); Estimated Glomerular Filt Rate 60 ml/min (>60); GFR (African American) 72 ML/MIN (>60); Glucose 111 mg/dl (74-100)
== END ==
PROVIDERS: PCP Family Medicine; Visit Provider Internal Medicine
DX: I25.10 Atherosclerotic heart disease of native coronary artery without angina pectoris (principal); Z95.5 Presence of coronary angioplasty implant and graft
CPT/HCPCS: 36415; 80048; 85025

== ENCOUNTER 2022-07-14 09:48 | Outpatient (RCR) | payer MEDICARE, SELFPAY | END 2022-07-14 10:45 | disposition home or self-care (01) | LOC: PT 09:48 | PROVIDERS: Visit Provider Internal Medicine | DX: I25.10 Atherosclerotic heart disease of native coronary artery without angina pectoris (principal); Z95.5 Presence of coronary angioplasty implant and graft | CPT/HCPCS: 93798 ==

== ENCOUNTER → 2022-07-19 10:07 | Outpatient (CLI) | payer MEDICARE, SELFPAY ==
--- NOTE | 2022-07-19 10:10 | XR_ITS ---
FINAL REPORT CLINICAL HISTORY: decreased lung sounds right side FINDINGS: TWO-VIEW CHEST The heart size is normal. There is chronic deformity of the sternum, could represent sequela of prior injury. The lungs are clear. There is no pneumothorax. IMPRESSION: No acute cardiopulmonary process. Reviewed, Interpreted and Dictated by Bjorn Saavedra III, MD Transcribed by June Zaragoza Authenticated and [facility]
== END ==
PROVIDERS: PCP Family Medicine; Visit Provider Nurse Practitioner
DX: E78.5 Hyperlipidemia, unspecified (principal); I10 Essential (primary) hypertension; I25.10 Atherosclerotic heart disease of native coronary artery without angina pectoris; I45.10 Unspecified right bundle-branch block; R06.89 Other abnormalities of breathing; Z87.891 Personal history of nicotine dependence
CPT/HCPCS: 71046

== ENCOUNTER → 2022-11-28 07:49 | Outpatient (CLI) | payer MEDICARE, SELFPAY ==
[2022-11-28 09:22] LABS: Chloride 100 mmol/L (98-107); Potassium 4.6 mmoL/L (3.5-5.1); Sodium 141 mmol/L (136-145)
[2022-11-28 09:25] LABS: Alanine Aminotransferase 19 U/L (12-78); Albumin Level 4.5 g/dl (3.5-5.0); Albumin/Globulin Ratio 1.8 (1.1-1.8); Alkaline Phosphatase 60 U/L (38-126); Anion Gap 12.6 mEq/L (5-15); Aspartate Amino Transferase 26 U/L (17-59); Bilirubin,Total 0.5 mg/dl (0.2-1.3); Blood Urea Nitrogen 16 mg/dl (9-20); Carbon Dioxide 33 mmol/L (22.0-30.0); Cholesterol 123 mg/dl (140-200); Estimated Glomerular Filt Rate 60 ml/min (>60); GFR (African American) 72 ML/MIN (>60); Globulin 2.5 g/dL (1.3-3.2); Triglycerides 146 mg/dl (30-150); VLDL Cholesterol 29 mg/dL (0-40)
[2022-11-28 09:26] LABS: Calcium 9.5 mg/dl (8.4-10.2); Chol/HDL Ratio 2.3 (1-3.5); Glucose 108 mg/dl (74-100); HDL Cholesterol 54 mg/dl (40-60)
[2022-11-28 09:37] LABS: Direct LDL Cholesterol 49.61 mg/dL (100-129)
[2022-11-28 10:21] LABS: Hemoglobin A1C 5.5 % (4.0-6.0)
== END ==
PROVIDERS: PCP Family Medicine; Visit Provider Physician Assistant
DX: R73.03 Prediabetes (principal); I10 Essential (primary) hypertension
CPT/HCPCS: 36415; 80053; 80061; 83036

== ENCOUNTER → 2022-12-27 13:02 | Outpatient (POV) | payer MEDICARE, SELFPAY | PROVIDERS: Visit Provider Dermatology | DX: Z00.00 Encounter for general adult medical examination without abnormal findings (principal) ==

== ENCOUNTER 2023-03-26 09:35 | Emergency (ER) | payer MEDICARE, SELFPAY ==
[2023-03-26 09:36] VITALS: BP 150/79; PULSE 58; RESP 18; TEMP 36.6; O2SAT 93; BMI 30.2
--- NOTE | 2023-03-26 09:46 | EXP.UTC ---
Discharge Plan Disposition Patient Disposition: Home, Self-Care Condition: Good Prescriptions Prescriptions: New prednisone 10 mg tablet 10 mg PO DIRECTED 9 Days Qty: 21 0RF Rx Instructions: Take 4 tablets daily for 3 days, then take 2 tablets daily for 3 days, then take 1 tablet daily for 3 days, then stop. amoxicillin [amoxicillin] 500 mg tablet 500 mg PO TID 10 Days Qty: 30 0RF meclizine 25 mg tablet 25 mg PO Q6HP PRN (Reason: dizziness) Qty: 30 0RF No Action doxylamine succinate 25 mg tablet 25 mg PO HS PRN (Reason: .) simvastatin 20 mg tablet 20 mg PO DAILY Qty: 90 1RF meloxicam 15 mg tablet 15 mg PO DAILY Qty: 90 1RF omeprazole 20 mg capsule,delayed release(DR/EC) 20 mg PO DAILY Qty: 90 1RF valsartan-hydrochlorothiazide 160-25 mg tablet 1 tab PO DAILY Qty: 90 1RF metformin 1,000 mg tablet 1,000 mg PO DAILY Qty: 90 1RF Hold Instructions: Resume on 06/23/22. hold for two day post cath trazodone 150 mg tablet 300 mg PO HS Qty: 180 1RF clopidogrel [Plavix] 75 mg tablet 75 mg PO DAILY Qty: 90 3RF aspirin [Adult Low Dose Aspirin] 81 mg tablet,delayed release (DR/EC) 81 mg PO DAILY Ozempic 1 mg/dose (4 mg/3 mL) pen injector 1 mg SQ WEEKLY Qty: 3 0RF Rx Instructions: 1 mg subcutaneously weekly bisoprolol fumarate 5 mg tablet 2.5 mg PO QDAY Qty: 30 5RF Paxlovid 300 mg (150 mg x 2)-100 mg tablets,dose pack See Rx Instructions PO .COMPLEX Qty: 30 0RF Rx Instructions: take TWO 150 mg tablets of nirmatrelvir with ONE 100 mg tablet of ritonavir twice daily for 5 days PO tamsulosin 0.4 mg capsule 0.4 mg PO HS Referrals Follow up/Referrals: Shar Uribe DO [Primary Care Provider] - See instructions Activity Restrictions/Add. Instructions Additional Instructions/Restrictions: Take tylenol for pain or fever. Take the medications as directed. The meclizine (antivert) will make you drowsy. Please don't drive or operate heavy machinery after taking this. Do everything that you can possibly do to prevent yourself from falling while you are dizzy. Go from sitting to standing slowly. Follow up with your regular doctor. GO TO THE ER FOR ANY WORSENING SYMPTOMS Clinical Impressions Clinical Impression: Benign paroxysmal positional vertigo, Otitis media Instructions Patient Instructions: Benign Paroxysmal Positional Vertigo, Middle Ear Infection, Prednisone Discharge ED Provider: Frank Au [facility] General Stated complaint: dizziness Time Seen by Provider: 03/26/23 09:46 History of Present Illness Provider Complaint: He states that he has had periods of intermittent dizziness since yesterday. He is also having ringing in his ears and bilateral ear pressure. He denies headache, focal weakness, numbness. Related Data Home Medications Medication Instructions Recorded Confirmed doxylamine succinate 25 mg tablet 25 mg PO HS PRN . 11/01/21 12/05/22 tamsulosin 0.4 mg capsule 0.4 mg PO HS . 06/21/22 12/05/22 aspirin 81 mg tablet,delayed 81 mg PO DAILY . 12/05/22 12/05/22 release (Adult Low Dose Aspirin) Previous Rx's Medication Instructions Recorded clopidogrel 75 mg tablet (Plavix) 75 mg PO DAILY #90 tabs 07/05/22 semaglutide 1 mg/dose (4 mg/3 mL) 1 mg (0.75 mL) SQ WEEKLY #3 mL 11/02/22 subcutaneous pen injector (Ozempic) bisoprolol fumarate 5 mg tablet 2.5 mg PO QDAY #30 tabs 11/07/22 meloxicam 15 mg tablet 15 mg PO DAILY Pain #90 tabs 12/05/22 metformin 1,000 mg tablet 1,000 mg PO DAILY pre diabetes #90 12/05/22 tabs omeprazole 20 mg capsule,delayed 20 mg PO DAILY GERD #90 caps 12/05/22 release simvastatin 20 mg tablet 20 mg PO DAILY Cholesterol #90 tabs 12/05/22 trazodone 150 mg tablet 300 mg PO HS . #180 tabs 12/05/22 valsartan 160 1 tab PO DAILY bp #90 tabs 12/05/22 mg-hydrochlorothiazide 25 mg tablet nirmatrelvir 300 mg (150 mg See Rx Instructions PO .COMPLEX 03/10
[2023-03-26 10:19] VITALS: BP 150/79; PULSE 58; RESP 18; TEMP 36.6; O2SAT 93
== END 2023-03-26 10:20 | disposition home or self-care (01) ==
PROVIDERS: Emergency Provider Nurse Practitioner Family; PCP Internal Medicine
DX: H81.10 Benign paroxysmal vertigo, unspecified ear (principal); H66.93 Otitis media, unspecified, bilateral; I10 Essential (primary) hypertension; E78.5 Hyperlipidemia, unspecified; I20.9 Angina pectoris, unspecified; M19.90 Unspecified osteoarthritis, unspecified site; R73.03 Prediabetes; Z87.891 Personal history of nicotine dependence
CPT/HCPCS: 99204; 99212; G0463

== ENCOUNTER → 2023-05-24 15:01 | Outpatient (CLI) | payer MEDICARE, SELFPAY ==
--- NOTE | 2023-05-24 15:02 | CT_ITS ---
FINAL REPORT TECHNIQUE: Thin section axial CT images of the facial bones and sinuses were obtained without contrast. Coronal reformatted images were also obtained.This study was performed with techniques to keep radiation doses as low as reasonably achievable, (ALARA). Individualized dose reduction techniques using automated exposure control or adjustment of mA and/or kV according to the patient''''s size were employed. CLINICAL HISTORY: sinus congestion/vertigo FINDINGS: There is mild mucosal thickening of the left maxillary sinus. There are presumed postoperative changes in the regions of the maxillary sinus ostia with widening. No fluid levels are identified. The nasal septum is midline. IMPRESSION: Sinusitis as above. Reviewed, Interpreted and Dictated by Bjorn Saavedra III, MD Transcribed by June Zaragoza Authenticated and [facility]
== END ==
PROVIDERS: PCP Internal Medicine; Visit Provider Nurse Practitioner
DX: J32.9 Chronic sinusitis, unspecified (principal); Z87.891 Personal history of nicotine dependence
CPT/HCPCS: 70486

== ENCOUNTER → 2023-06-06 13:55 | Outpatient (POV) | payer MEDICARE, SELFPAY | PROVIDERS: Visit Provider Specialist/Technologist | DX: Z00.00 Encounter for general adult medical examination without abnormal findings (principal) ==

== ENCOUNTER → 2023-07-07 07:22 | Outpatient (CLI) | payer MEDICARE, SELFPAY ==
--- NOTE | 2023-07-07 07:22 | MR_ITS ---
FINAL REPORT CLINICAL HISTORY: Asymmetrical Hearing loss COMPARISON: None FINDINGS: Multiplanar MR imaging of the brain was performed without and with contrast, with attention to the posterior fossa, cerebellopontine angles and internal auditory canals. There is no evidence of intracranial hemorrhage or mass. The ventricular size is within normal limits. There is no evidence of shift of the midline structures. No area of abnormal restricted diffusion is identified. Normal major vessel vascular flow voids are seen. No abnormal contrast enhancement is identified within the brain. There are multiple small foci of increased signal bilaterally in the periventricular white matter, likely mild changes of ischemic microvascular/gliotic disease. No mass or abnormal contrast enhancement is seen within the cerebellopontine angles or internal auditory canals. No focal abnormality is identified of the temporal bones. IMPRESSION: Changes of mild chronic ischemic/gliotic microvascular disease. No mass or abnormal contrast enhancement identified within the cerebellopontine angles or internal auditory canals. Reviewed, Interpreted and Dictated by Bjorn Saavedra III, MD Transcribed by Edwige Josue Authenticated and [facility]
[2023-07-07 08:04] LABS: Blood Urea Nitrogen 19 mg/dl (9-20); Estimated Glomerular Filt Rate 54 ml/min (>60); GFR (African American) 65 ML/MIN (>60)
== END ==
PROVIDERS: PCP Internal Medicine; Visit Provider Nurse Practitioner
DX: H91.8X3 Other specified hearing loss, bilateral; H69.93 Unspecified Eustachian tube disorder, bilateral
CPT/HCPCS: 70553; 82565; 84520; A9576

== ENCOUNTER 2023-12-07 15:39 | Outpatient (CLI) | payer MEDICARE, SELFPAY ==
[2023-12-07 18:58] LABS: Basophils # 0.1 K/mm3 (0-0.2); Basophils % 0.9 % (0.1-2.0); Eosinophils # 0.2 K/mm3 (0.0-0.4); Eosinophils % 2.8 % (0.1-12.0); Hematocrit 48.5 % (42.0-52.0); Hemoglobin 16.2 g/dL (14.1-18.0); Lymphocytes # 2.6 K/mm3 (0.7-4.5); Lymphocytes % 37.3 % (10-50); Mean Corpuscular HGB Conc 33.4 g/dL (31.8-35.4); Mean Corpuscular Hemoglobin 32.4 pg (27.0-31.2); Mean Corpuscular Volume 96.8 fl (80-94); Mean Platelet Volume 10.7 fl (7.4-10.4); Monocytes # 0.6 K/mm3 (0.1-1.0); Monocytes % 8.5 % (1.7-9.3); Neutrophils # 3.5 K/mm3 (1.8-7.8); Neutrophils % 50.5 % (37.0-80.0); Platelet Count 236 K/mm3 (142-424); Red Blood Count 5.01 M/mm3 (4.60-6.20); White Blood Count 6.9 K/mm3 (4.8-10.8)
[2023-12-07 19:20] LABS: Alanine Aminotransferase 22 U/L (12-78); Albumin Level 4.4 g/dl (3.5-5.0); Albumin/Globulin Ratio 1.8 (1.1-1.8); Alkaline Phosphatase 59 U/L (38-126); Anion Gap 13.5 mEq/L (5-15); Aspartate Amino Transferase 32 U/L (17-59); Bilirubin,Total 0.5 mg/dl (0.2-1.3); Blood Urea Nitrogen 21 mg/dl (9-20); Calcium 9.7 mg/dl (8.4-10.2); Carbon Dioxide 30 mmol/L (22.0-30.0); Chloride 100 mmol/L (98-107); Chol/HDL Ratio 2.2 (1-3.5); Cholesterol 148 mg/dl (140-200); Estimated Glomerular Filt Rate 54 ml/min (>60); GFR (African American) 65 ML/MIN (>60); Globulin 2.4 g/dL (1.3-3.2); Glucose 96 mg/dl (74-100); HDL Cholesterol 66 mg/dl (40-60); Potassium 4.5 mmoL/L (3.5-5.1); Sodium 139 mmol/L (136-145); Total Protein,Serum 6.8 g/dl (6.3-8.2); Triglycerides 133 mg/dl (30-150); VLDL Cholesterol 27 mg/dL (0-40)
[2023-12-07 19:31] LABS: Direct LDL Cholesterol 72.69 mg/dL (100-129)
[2023-12-07 19:55] LABS: Prostate Specific Ag Screen 2.3 ng/ml (0.0-4.0); Thyroid Stimulating Hormone 2.39 uIU/mL (0.465-4.68)
[2023-12-07 22:07] LABS: Creatinine,Urine Random 168 mg/dL (Not Estab.)
[2023-12-07 22:11] LABS: Microalbumin/Creatinine Ratio 25.8
== END 2023-12-07 23:59 | disposition home or self-care (01) ==
LOC: LAB.DROPOF 12-08 15:40
PROVIDERS: PCP Internal Medicine; Visit Provider Internal Medicine
DX: R53.83 Other fatigue (principal); E78.49 Other hyperlipidemia; Z12.5 Encounter for screening for malignant neoplasm of prostate; R73.09 Other abnormal glucose; E78.5 Hyperlipidemia, unspecified
CPT/HCPCS: 80053; 80061; 82043; 82570; 83036; 84443; 85025; G0103

== ENCOUNTER 2024-03-21 09:03 | Outpatient (CLI) | payer MEDICARE, SELFPAY ==
[2024-03-21 18:56] LABS: Creatinine,Urine Random 52 mg/dL (Not Estab.); Hemoglobin A1C 5.8 % (4.0-6.0)
[2024-03-21 19:53] LABS: Alanine Aminotransferase 24 U/L (12-78); Albumin Level 4.2 g/dl (3.5-5.0); Albumin/Globulin Ratio 1.6 (1.1-1.8); Alkaline Phosphatase 57 U/L (38-126); Anion Gap 11.4 mEq/L (5-15); Aspartate Amino Transferase 31 U/L (17-59); Bilirubin,Total 0.5 mg/dl (0.2-1.3); Blood Urea Nitrogen 17 mg/dl (9-20); Calcium 9.6 mg/dl (8.4-10.2); Carbon Dioxide 26 mmol/L (22.0-30.0); Chloride 105 mmol/L (98-107); Estimated Glomerular Filt Rate 73 ml/min (>60); GFR (African American) 88 ML/MIN (>60); Globulin 2.7 g/dL (1.3-3.2); Glucose 101 mg/dl (74-100); Potassium 4.4 mmoL/L (3.5-5.1); Sodium 138 mmol/L (136-145); Total Protein,Serum 6.9 g/dl (6.3-8.2)
== END 2024-03-21 23:59 | disposition home or self-care (01) ==
LOC: LAB.DROPOF 03-22 09:04
PROVIDERS: PCP Internal Medicine; Visit Provider Internal Medicine
DX: Z13.1 Encounter for screening for diabetes mellitus (principal); I10 Essential (primary) hypertension; R73.03 Prediabetes; Z87.891 Personal history of nicotine dependence
CPT/HCPCS: 80053; 82043; 82570; 83036

== ENCOUNTER 2024-11-08 07:25 | Outpatient (CLI) | payer MEDICARE, SELFPAY ==
[2024-11-08 07:50] LABS: Blood Urea Nitrogen 25 mg/dl (9-20); Estimated Glomerular Filt Rate 54 ml/min (>60); GFR (African American) 65 ML/MIN (>60)
--- NOTE | 2024-11-08 08:00 | CT_ITS ---
FINAL REPORT TECHNIQUE: Axial CT without IV contrast administration. This study was performed with techniques to keep radiation doses as low as reasonably achievable, (ALARA). Individualized dose reduction techniques using automated exposure control or adjustment of mA and/or kV according to the patient''s size were employed. CLINICAL HISTORY: pulmonary nodule PRIOR SMOKER COMPARISON: CT low-dose chest 06/10/2021 FINDINGS: The subtle 3 mm nodule in the right lung apex on image 21 of series 4 is unchanged. Mild right lower lobe scarring is noted. The left lung is clear. No pleural or pericardial effusion is seen. No adenopathy or mass lesion is present. IMPRESSION: Stable tiny right upper lobe nodule compatible with benign etiology. No acute findings. Reviewed, Interpreted and Dictated by Veronica Villalpando MD Transcribed by Martha Uribe Authenticated and [facility]
[2024-11-08] MEDS: IOPAMIDOL-370 (76%);100ML BOTTLE 75 ML IV (08:24)
[2024-11-08] MEDS: SODIUM CHLORIDE 0.9% 10ML SYR (RAD ONLY) 10 ML IV (08:24)
--- NOTE | 2024-11-08 08:30 | CT_ITS ---
FINAL REPORT TECHNIQUE: Axial CT of the abdomen and pelvis, without and with IV contrast. This study was performed with techniques to keep radiation doses as low as reasonably achievable, (ALARA). Individualized dose reduction techniques using automated exposure control or adjustment of mA and/or kV according to the patient''s size were employed. CLINICAL HISTORY: hematuria, renal cyst PT STATED PAIN ON RIGHT LOWER ABDOMINAL PAIN COMPARISON: 09/24/2021 FINDINGS: Abdomen: There is a 28 mm benign cyst in the posterior right mid kidney. A few tiny lesions in the left kidney measure 5 mm or less. These are too small to definitively characterize. Precontrast imaging demonstrates no renal stone disease. Delayed imaging demonstrates no evidence of obstruction of the upper urinary tract. The remaining solid organs are negative. The gallbladder is unremarkable. The bowel demonstrates diverticular disease in the left lobe but otherwise unremarkable. Pelvis: The appendix is normal. There is moderate prostate enlargement. Mild nonspecific bladder wall thickening is noted. No pelvic adenopathy IMPRESSION: Benign right renal cyst. No findings to account for patient's hematuria. Reviewed, Interpreted and Dictated by Veronica Villalpando MD Transcribed by Martha Uribe Authenticated and [facility]
== END 2024-11-08 23:59 | disposition home or self-care (01) ==
PROVIDERS: PCP Family Medicine; Visit Provider Family Medicine
DX: R31.9 Hematuria, unspecified (principal); R91.1 Solitary pulmonary nodule; N28.1 Cyst of kidney, acquired
CPT/HCPCS: 36415; 71250; 74178; 82565; 84520; Q9967

== ENCOUNTER 2024-11-13 07:10 | Outpatient (CLI) | payer MEDICARE, SELFPAY ==
--- NOTE | 2024-11-13 | CA_ITS ---
APPROVED REPORT Exam: Exercise Treadmill Technologist: Anni Matta Ht: 5 ft 9 in Wt: 217 lbs BSA: 2.14 m2 HR: 51 bpm BP: 139/71 mmHg Rhythm: NSR Stress Test Details Test: Exercise stress testing was performed using a Patrice protocol. HR Resting HR: 51 bpm Max Heart Rate (APMHR): 146 bpm Max HR Achieved: 135 bpm Target HR (85% APMHR): 124 bpm % of APMHR: 92 Recovery HR: 89 bpm HR response to stress: Normal HR response to stress BP Resting BP: 139.0/71.0 mmHg Max BP: 184.0/86.0 mmHg Recovery BP: 163.0/72.0 mmHg BP response to stress: Normal blood pressure response to stress. ECG Resting ECG: NSR Stress EC.[address] depression Arrhythmia: PVCs Clinical Exercise duration: 9:07 min Exercise capacity: 10.3 METs Overall Exercise Capacity for Age: Average Stress ECG Conclusion Symptoms: Shortness of air, chest tightness Arrhythmias/Ectopy: Occasional PVCs ST-T Changes: 0.[address] depression Conclusion: Average exercise capacity. No evidence of ischemia on ECG at peak stress. Myoview images are reported separately. Electronically signed by : Carly Cifuentes MD 11/13/2024 12:47:31
--- OUTSIDE RECORDS SUMMARY | 2024-11-13 07:12 | XMS_ITS | Continuity of Care Document ---
Author Organization [facility] Florencio joya CUA [facility] Address [address] [place] [address] Care Team Providers Care Inspector [employer]ating [employer] Refrig[employer] Name Role Phone JOHN FU Referring Provider [phone] TAMI SINCLAIR Primary Care Provider Assessment No assessment recorded. Plan of Treatment Reminders Order Date Submit Date Provider Last Modified By Organization Details Last Modified Time Details Appointments RECHECK 2025 09:00A M CARMELINA BLACK MD Not available Not available Not available Lab urinalysi s panel, auto [email or web address] [facility], [address] [facility], [place], [address], 10/11/2024 09:28:29 Referral None recorded. Procedures None recorded. Surgeries None recorded. Imaging None recorded. Medication Orders tamsulosi n 0.4 mg capsule 2024 025 [facility] 591, [address], [address], 10/11/2024 09:28:38 Patient TargetsNo targets recorded. Patient InstructionsNo instructions recorded. Reason for Referral None Reported. Results Created Date Observation Date Name Description Value Unit Range Abnormal Flag Note LastModifiedBy Organization Detail LastModifiedTime 10/12/19 25 10/11/2024 urina lysis panel , auto Unknown Analyte Clean Catch Not Available [facility] [address], [place], [address], 10/11/2024 08:54:23 10/12/19 25 10/11/2024 urina lysis panel , auto Unknown Analyte Yellow Not Available [facility] [address], [place], [address], 10/11/2024 08:54:23 10/12/19 25 10/11/2024 urina lysis panel , auto Unknown Analyte Clear Not Available [facility] [address], [place], [address], 10/11/2024 08:54:23 10/12/19 25 10/11/2024 urina lysis panel , auto Unknown Analyte 1.010 Not Available [facility] [address], [place], [address], 10/11/2024 08:54:23 10/12/19 25 10/11/2024 urina lysis panel , auto Unknown Analyte 1.003 - 1.030 Not Available [facility] [address], [place], [address], 10/11/2024 08:54:23 10/12/19 25 10/11/2024 urina lysis panel , auto Unknown Analyte 6.0 Not Available [facility] [address], [place], [address], 10/11/2024 08:54:23 10/12/19 25 10/11/2024 urina lysis panel , auto Unknown Analyte 5.0 - 8.0 Not Available [facility] [address], [place], [address], 10/11/2024 08:54:23 10/12/19 25 10/11/2024 urina lysis panel , auto Unknown Analyte Negati ve Not Available [facility] [address], [place], [address], 10/11/2024 08:54:23 10/12/19 25 10/11/2024 urina lysis panel , auto Unknown Analyte Negati ve Not Available [facility] [address], [place], [address], 10/11/2024 08:54:23 10/12/19 25 10/11/2024 urina lysis panel , auto Unknown Analyte Negati ve Not Available [facility] [address], [place], [address], 10/11/2024 08:54:23 10/12/19 25 10/11/2024 urina lysis panel , auto Unknown Analyte Negati ve Not Available [facility] [address], [place], [address], 10/11/2024 08:54:23 10/12/19 25 10/11/2024 urina lysis panel , auto Unknown Analyte Negati ve Not Available [facility] [address], [place], [address], 10/11/2024 08:54:23 10/12/19 25 10/11/2024 urina lysis panel , auto Unknown Analyte Negati ve Not Available [facility] [address], [place], [address], 10/11/2024 08:54:23 10/12/19 25 10/11/2024 urina lysis panel , auto Unknown Analyte Normal Not Available [facility] [address], [place], [address], 10/11/2024 08:54:23 10/12/19 25 10/11/2024 urina lysis panel , auto Unknown Analyte Normal Not Available [facility] [address], [place], [address], 10/11/2024 08:54:23 10/12/19 25 10/11/2024 urina lysis panel , auto Unknown Analyte Negati ve Not Available [facility] [address], [place], [address], 10/11/2024 08:54:23 10/12/19 25 10/11/2024 urina lysis panel , auto Unknown Analyte Negati ve Not Available [facility] [address], [place], [address], 10/11/2024 08:54:23 10/12/19 25 10/11/2024 urina lysis panel , auto Unknown Analyte Normal Not Available [facility] [address], [place], [address], 10/11/2024 08:54:23 10/12/19 25 10/11/2024 urina lysis panel , auto Unknown Analyte Normal Not Available [facility] [address], [place], [address], 10/11/2024 08:54:23 10/12/19 25 10/11/2024 urina lysis panel , auto Unknown Analyte Negati ve Not Available [facility] [address] [place] [address] [address], [place], [address], 10/11/2024 08:54:23 10/12/19 25 10/11/2024 urina lysis panel , auto Unknown Analyte Negati ve Not Available [facility] [address] [facility] [address], [place], [address], 10/11/2024 08:54:23 10/12/19 25 10/11/2024 urina lysis panel , auto Unknown Analyte Negati ve Not Available [facility] [address], [place], [address], 10/11/2024 08:54:23 10/12/19 25 10/11/2024 urina lysis panel , auto Unknown Analyte Negati ve Not Available [facility] [address], [place], [address], 10/11/2024 08:54:23 Result Notes None recorded. Problems No Known Problems Procedures Surgical History Date Name Laterality Status Provider Name and Address Organization Details Recorded Time procedure on knee completed Martha Torre Y [facility] 06/28/2021 11:45:48 tonsillectomy completed Martha Keegan CONTRERAS [facility] 06/28/2021 11:46:15 nasal septoplasty completed Martha Keegan K Y [facility] 06/28/2021 11:46:26 Back Surgery completed Bridger Tom [facility] 12/06/2022 14:03:00 procedure on nasal septum completed Murelene Negro [facility] 12/06/2022 14:03:21 Stent completed Shirae Negro [facility] 12/06/2022 14:03:29 Imaging Results None recorded. Procedure Notes None recorded. Medical Equipment None Reported. Allergies No known drug allergies Medications Name Sig Start Date Stop Date Status Note LastModified by Organization Details LastModified Time Trimix (papaveri ne--phent alom-alpr ost 30mg-1mg- 10mcg/ml intracave rnosal soln) Inject as directed 0.1 mL 2023 active Not Available Not Available Not Avai lable cyclobenz aprine 10 mg tablet TAKE 1 TABLET BY MOUTH THREE TIMES DAILY NEEDED 12/06 completed Not Available Not Available Not Available metformin 500 mg tablet TAKE 2 TABLETS BY MOUTH ONCE DAILY WITH A MEAL 12/06 completed Not Available Not Available Not Available meloxicam 15 mg tablet TAKE 1 TABLET BY MOUTH ONCE DAILY active Not Available Not Available No t Available clopidogr el 75 mg tablet TAKE 1 TABLET BY MOUTH ONCE DAILY active Not Available Not Available No t Available ciproflox acin 500 mg tablet TAKE 1 TABLET BY MOUTH EVERY 12 HOURS FOR 10 DAYS 12/06 completed Not Available Not Available Not Available bisoprolo l fumarate 5 mg tablet TAKE 1/2 (ONE-ABELARDO F) TABLET BY MOUTH ONCE DAILY active Not Available Not Available No t Available ciclopiro x 8 % topical solution APPLY SOLUTION EXTERNAL LY ONCE DAILY FOR 30 DAYS 12/06 completed Not Available Not Available Not Available triamcino lone acetonide 0.1 % dental paste 12/06 completed Not Available Not Available Not Available tamsulosi n 0.4 mg capsule Take 1 capsule by mouth twice daily 2024 active Not Available Not Available Not Avai lable hydrocodo ne 7.5 mg-acetam inophen 325 mg tablet TAKE 1 TABLET BY MOUTH EVERY 6 HOURS NEEDED 12/06 completed Not Available Not Available Not Available simvastat in 20 mg tablet TAKE 1 TABLET BY MOUTH ONCE DAILY FOR CHOLESTE ROL active Not Available Not Available No t Available trazodone 150 mg tablet TAKE 2 TABLETS BY MOUTH ONCE DAILY AT BEDTIME AT NIGHT active Not Available Not Available No t Available metformin 1,000 mg tablet TAKE 1 TABLET BY MOUTH ONCE DAILY FOR PRE DIABETES active Not Available Not Available No t Available Diovan HCT 160 mg-12.5 mg tablet 12/06 completed Medicati on Descript ion: hydrochl orothiaz evan-vals felipe; Route:or al; refills: 0 Not Available Not Available Not Available omeprazol e 20 mg capsule,d elayed release TAKE 1 CAPSULE BY MOUTH ONCE DAILY FOR GERD active Not Available Not Available No t Available metoprolo l succinate ER 25 mg tablet,ex tended release 24 hr TAKE 1 TABLET BY MOUTH AT BEDTIME active Not Available Not Available No t Available diazepam 10 mg tablet 12/06 completed Not Available Not Available Not Available loratadin e 10 mg tablet 12/06 completed Medicati on Descript ion: loratadi ne; Route:or al; refills: 0 Not Available Not Available Not Available valsartan 160 mg-hydroc hlorothia zide 25 mg tablet TAKE 1 TABLET BY MOUTH ONCE DAILY active Not Available Not Available No t Available Asprin Ec Low Dose 81 mg tablet,de layed release Take 1 tablet every day by oral route. active Not Available Not Available No t Available Vytorin 10 mg-40 mg tablet 12/06 completed Medicati on Descript ion: ezetimib e-simvas tatin; Route:or al; refills: 0 Not Available Not Available Not Available omeprazol e 12/06 completed Not Available Not Available Not Available simvastat in 12/06 completed Not Available Not Available Not Available azelastin e active Not Available Not Available Not Available docusate calcium active Not Available Not Available Not Available metformin 12/06 completed Not Available Not Available Not Available multivita min 12/06 completed Medicati on Descript ion: multivit wan; refills: 0 Not Available Not Available Not Available Glucosami ne-Chondr otin 12/06 completed Medicati on Descript ion: miscella neous; refills: 0 Not Available Not Available Not Available levocetir izine 5 mg tablet Take 1 tablet every day by oral route. active Not Available Not Available No t Available Fish Oil 300 mg-1,000 mg capsule,d elayed release 12/06 completed Medicati on Descript ion: omega-3 polyunsa turated fatty acids; Route:or al; refills: 0 Not Available Not Available Not Available Brilinta 90 mg tablet TAKE ONE TABLET BY MOUTH TWICE DAILY 12/06 completed Not Available Not Available Not Available Ozempic 0.25 mg or 0.5 mg (2 mg/1.5 mL) subcutane ous pen injector INJECT 0.5MG SUBCUTAN EOUSLY ONCE WEEKLY 12/06 completed Not Available Not Available Not Available ID NOW COVID-19 Test Kit TEST DIRECTED TODAY 12/06 completed Not Available Not Available Not Available Ozempic 1 mg/dose (4 mg/3 mL) subcutane ous pen injector 02/10 completed Not Available Not Available Not Available BinaxNOW COVID-19 Ag Self Test kit Use as Directed on the Package 12/06 completed Not Available Not Available Not Available Vitals Date Recorded Body height Body mass index (BMI) Body weight Provider Name and Address Organization Details Last Updated DateTime 10/11/2024 175.26 cm 31.7 kg/m2 92537.36 [facility] 09:17:14 Social History Question Answer Notes LastModified by Organizat ion Details LastModified Time Tobacco Smoking Status [facility] 11:44:59 What Is Your Level Of Alcohol Consumption? Moderate 1 [place] A Day Information not available 12/06/2022 What Was The Date Of Your Most Recent Tobacco Screening? 10/11/2024 [email or web address] Information not available 10/11/2024 What Is Your Relationship Status? Information not available 12/06/2022 Do You Use Any Illicit Or Recreational Drugs? No Information not available 06/28/2021 Has Tobacco Cessation Counseling Been Provided? No Information not available 06/28/2021 How Many Years Have You Smoked Tobacco? 40 Information not available 06/28/2021 Do You Or Have You Ever Used Any Other Forms Of Tobacco Or Nicotine? No Information not available 06/28/2021 Sex: Male Functional Status None recorded. Mental Status None recorded. Family History Relationship Description Onset Age of this Age Resolved Age Notes LastModified by Organization Details LastModified Time Unspecified Relation Cerebrovascu lar accident apurdie Not available 11:44:22 Unspecified Relation Hypertensive disorder apurdie Not available 2020 11:44:31 Unspecified Relation Back problem apurdie Not available 06/01 11:44:42 Unspecified Relation Myocardial infarction apurdie Not available 06/28 11:44:47 Unspecified Relation Diabetes mellitus Not available 2022 14:02:10 Medical History Condition Response Diabetes Y Arthritis Y Hypertension Y High Cholesterol Y Past Encounters Encounter ID Performer Location Encounter Start Date Encounter Closed Date Diagnosis/Indication Diagnosis SNOMED-CT Code Diagnosis ICD10 Code Diagnosis Note [id number] CARMELINA BLACK MD [facility] [address] [place] [address] 10/11/2024 08:40:07 10/11/2024 09:27:15 Benign prostatic hyperplasia with outflow obstruction 933984428 N40.1 Follow-up 6 months continue tamsulosin twice daily Primary er ectile dysfunction 818718446 N52.9 Plan as above follow-up 12 months, if he decides to proceed with the anterior urethral gel he will contact us and we will send a prescripti on to [place] [facility] pharmacy Health Concerns Section Related Observation LastModified by Organization Detai ls LastModified Time None Recorded Concern Status LastModified by Organization Details LastModified Time None Recorded Payers Encounter Date Sequence Insurance Name Policy Number Policy Nolen Covered Member ID Nolen Member ID Guarantor Name 10/11/2024 1 [place] [facility] ACCESS (MEDICARE REPLACEMENT REGIONAL PPO) [id number] Ronn Yang [id number] Ronn Yang Notes Date Note Type Note Provider Name and Address Organization Details Recorded Time 10/11/2024 text/html Patient is here for 6-month follow-up regarding obstructive urination symptoms on tamsulosin twice daily as well as erectile dysfunction. He was started on injection therapy last spring but unfortunate is never reached a satisfactory result. We discussed switching him to intraurethral gel but at this point he would just observe. I also offered injection here. He will be gets consider this. He is due for full physical next month by his PCP and anticipates PSA at that time. His PSAs are stable last year. Typically has nocturia x 0-1. CARMELINA BLACK MD [address] [place], [address], [facility] 10/11/2024 09:29:23
--- OUTSIDE RECORDS SUMMARY | 2024-11-13 07:12 | XMS_ITS | Data Portability ---
Author Organization [facility] ADMIN Address [address] [place] [address] Assessment No assessment recorded. Plan of Treatment Reminders Order Date Submit Date Provider Last Modified By Organization Details Last Modified Time Details Appointments None record ed. Lab None record ed. Referral None record ed. Procedures None record ed. Surgeries None record ed. Imaging None record ed. Medication Orders None record ed. Patient TargetsNo targets recorded. Patient InstructionsNo instructions recorded. Reason for Referral None Reported. Results Created Date Observation Date Name Description Value Unit Range Abnormal Flag Note LastModifiedBy Organization Detail LastModifiedTime 08/29/19 24 08/29/2023 audio gram No observ ation record ed. Not Available 2023 10:06:01 Result Notes None recorded. Problems Name Problem SNOMED Code Status Onset Date Resolution Date Notes Provider Name and Address Organization Details Recorded Time Sensorineural hearing loss 01380764 Active 2023 REESE MIGUEL, AUD [address] [facility] [facility], [place], [address] , [facility] [place] 10:25:28 Problem Notes None recorded. Procedures Surgical History None recorded. Imaging Results Imaging Date Name Status LastModified by Organiz ation Details LastModified Time 08/29/2023 audiogram completed [email or web address] Information no t available 08/29/2023 10:06:01 Procedure Notes None recorded. Medical Equipment None Reported. Allergies No known drug allergies Medications Name Sig Start Date Stop Date Status Note LastModified by Organization Details LastModified Time amoxicillin 500 mg capsule TAKE 1 CAPSULE BY MOUTH THREE TIMES DAILY FOR 10 DAYS active Not Available Not Available Not Available prednisone 10 mg tablet TAKE 4 TABLETS BY MOUTH ONCE DAILY FOR 3 DAYS, THEN TAKE 2 TABLETS ONCE DAILY FOR 3 DAYS, THEN TAKE 1 TABLET ONCE DAILY FOR 3 DAYS, THEN STOP. active Not Available Not Available No t Available meloxicam 15 mg tablet TAKE 1 TABLET BY MOUTH ONCE DAILY FOR PAIN active Not Available Not Available No t Available clopidogrel 75 mg tablet TAKE 1 TABLET BY MOUTH ONCE DAILY active Not Available Not Available No t Available bisoprolol fumarate 5 mg tablet TAKE 1/2 (ONE-HALF) TABLET BY MOUTH ONCE DAILY active Not Available Not Available No t Available tamsulosin 0.4 mg capsule TAKE 1 CAPSULE BY MOUTH TWICE DAILY active Not Available Not Available No t Available meclizine 25 mg tablet TAKE 1 TABLET BY MOUTH EVERY 6 HOURS NEEDED FOR DIZZINESS active Not Available Not Available No t Available simvastatin 20 mg tablet TAKE 1 TABLET BY MOUTH ONCE DAILY FOR CHOLESTEROL active Not Available Not Available Not Available trazodone 150 mg tablet TAKE 2 TABLETS BY MOUTH AT BEDTIME active Not Available Not Available No t Available metformin 1,000 mg tablet TAKE 1 TABLET BY MOUTH ONCE DAILY active Not Available Not Available No t Available omeprazole 20 mg capsule,jocelyn yed release TAKE 1 CAPSULE BY MOUTH ONCE DAILY active Not Available Not Available No t Available azelastine 137 mcg (0.1 %) nasal spray USE 2 SPRAY(S) IN EACH NOSTRIL TWICE DAILY FOR ALLERGIES active Not Available Not Available No t Available valsartan 160 mg-hydrochlo rothiazide 25 mg tablet TAKE 1 TABLET BY MOUTH ONCE DAILY FOR BLOOD PRESSURE active Not Available Not Available No t Available levocetirizi ne 5 mg tablet TAKE 1 TABLET BY MOUTH AT BEDTIME NIGHTLY active Not Available Not Available No t Available Ozempic 0.25 mg or 0.5 mg (2 mg/1.5 mL) subcutaneous pen injector INJECT 0.5MG SUBCUTANEOU SLY ONCE WEEKLY active Not Available Not Available No t Available Vitals None Recorded Social History None recorded. Functional Status None recorded. Mental Status None recorded. Family History Relationship Description Onset Age of this Age Resolved Age Notes LastModified by Organization Details LastModified Time Father Myocardial infarction pt. added direct ly (08/26) [email or web address] Not available 08/26/2023 10:46:01 Medical History No medical history recorded. Past Encounters Encounter ID Performer Location Encounter Start Date Encounter Closed Date Diagnosis/Indication Diagnosis SNOMED-CT Code Diagnosis ICD10 Code Diagnosis Note [id number] ANNABELLE QUINTERO [facility], [place] [address] 08/29/2023 09:45:11 08/29/2023 10:15:37 Sensorineural hearing loss 50712424 H90.3 [id number] ANNABELLE QUINTERO [facility] [place] [id number], [place] [address] 09/26/2023 10:18:36 09/26/2023 10:38:12 Sensorineural hearing loss 46954809 H90.3 Health Concerns Section Related Observation LastModified by Organization Detai ls LastModified Time None Recorded Concern Status LastModified by Organization Details LastModified Time None Recorded Advance Directives Directive None Recorded Payers Encounter Date Sequence Insurance Name Policy Number Policy Nolen Covered Member ID Nolen Member ID Guarantor Name 08/29/2023 1 [place]MED[place]ARE [place]ACEMENT [place]AL P[place] [id number] Ronn Yang [id number] Ronn Maher Cel[place] 09/26/2023 1 [place] [id number] Ronn Yang [id number] Ronn Maher [place] Notes Date Note Type Note Provider Name and Address Organization Details Recorded Time 08/29/2023 text/html Patient was seen today for a hearing aid service. Cleaned and adjusted hearing aids this date. REESE MIGUEL, ANNABELLE [address] , [place], [address], [facility] & [place] 08/29/2023 10:25:46 09/26/2023 text/html Mr. Yang was seen today for a hearing aid fitting via [facility]. ANNABELLE QUINTERO [address] , [place], [address], [facility] & [place] 09/26/2023 11:13:31
--- OUTSIDE RECORDS SUMMARY | 2024-11-13 07:13 | XMS_ITS | Data Portability ---
Author Organization [facility] Astrid joya, HEYDIS EPHRATA CLOSED Address [address] [place] [address] Care Team Providers Care Slab Tripper Name Role Phone JOHN FU Referring Provider TAMI SINCLAIR Primary Care Provider [phone] Assessment No assessment recorded. Plan of Treatment Reminders Order Date Submit Date Provider Last Modified By Organization Details Last Modified Time Details Appointments RECHECK 2025 09:00A M CARMELINA BLACK MD Not available Not available Not available Lab urinalysi s panel, auto 2024 025 [email or web address] [facility], [address], [place], [address], 10/11/2024 09:28:29 urinalysi s panel, auto 2023 024 [email or web address] [facility], [address], [place], [address], 04/17/2024 14:08:25 urinalysi s panel, auto 2023 024 [email or web address] [facility], [address], [place], [address], 10/09/2023 16:22:35 urinalysi s panel, auto 2022 023 [facility], [address], [place], [address], 02/21/2023 12:27:08 Referral None recorded. Procedures None recorded. Surgeries None recorded. Imaging None recorded. Medication Orders tamsulosi n 0.4 mg capsule 2024 025 [facility], [address], [address], 10/11/2024 09:28:38 Trimix (papaveri ne--phent alom-alpr ost 30mg-1mg- 10mcg/ml intracave rnosal soln) 2023 024 [facility], [address], [place], [place], [id number], 10/09/2023 16:34:34 Patient TargetsNo targets recorded. Patient InstructionsNo instructions recorded. Reason for Referral None Reported. Results Created Date Observation Date Name Description Value Unit Range Abnormal Flag Note LastModifiedBy Organization Detail LastModifiedTime 02/11/2002/10/2023 urina lysis panel , auto Unknown Analyte Clean Catch Not Available [facility] [address], [address], 02/10/2023 11:22:45 02/11/2002/10/2023 urina lysis panel , auto Unknown Analyte Yellow Not Available [facility] [address], [address], 02/10/2023 11:22:45 02/11/2002/10/2023 urina lysis panel , auto Unknown Analyte Clear Not Available [facility] [address], [address], 02/10/2023 11:22:45 02/11/20 23 02/10/2023 urina lysis panel , auto Unknown Analyte 1.015 Not Available [facility] [address], [place], [address], 02/10/2023 11:22:45 02/11/20 23 02/10/2023 urina lysis panel , auto Unknown Analyte 8.0 Not Available [facility] [address], [place], [address], 02/10/2023 11:22:45 02/11/20 23 02/10/2023 urina lysis panel , auto Unknown Analyte Negati ve Not Available [facility] [address], [place], [address], 02/10/2023 11:22:45 02/11/20 23 02/10/2023 urina lysis panel , auto Unknown Analyte Negati ve Not Available [facility] [address], [place], [address], 02/10/2023 11:22:45 02/11/20 23 02/10/2023 urina lysis panel , auto Unknown Analyte Negati ve Not Available [facility] [address], [place], [address], 02/10/2023 11:22:45 02/11/20 23 02/10/2023 urina lysis panel , auto Unknown Analyte Normal Not Available [facility] [address], [place], [address], 02/10/2023 11:22:45 02/11/20 23 02/10/2023 urina lysis panel , auto Unknown Analyte Negati ve Not Available [facility] [address], [place], [address], 02/10/2023 11:22:45 02/11/20 23 02/10/2023 urina lysis panel , auto Unknown Analyte Normal Not Available [facility] [address], [place], [address], 02/10/2023 11:22:45 02/11/20 23 02/10/2023 urina lysis panel , auto Unknown Analyte Negati ve Not Available [facility] [address], [place], [address], 02/10/2023 11:22:45 02/11/20 23 02/10/2023 urina lysis panel , auto Unknown Analyte Negati ve Not Available [facility] [address], [place], [address], 02/10/2023 11:22:45 10/09/19 24 10/09/2023 urina lysis panel , auto Unknown Analyte Clean Catch Not Available [facility] [address], [place], [address], 10/09/2023 15:33:39 10/09/19 24 10/09/2023 urina lysis panel , auto Unknown Analyte Yellow Not Available [facility] [address], [place], [address], 10/09/2023 15:33:39 10/09/19 24 10/09/2023 urina lysis panel , auto Unknown Analyte Clear Not Available [facility] [address], [place], [address], 10/09/2023 15:33:39 10/09/19 24 10/09/2023 urina lysis panel , auto Unknown Analyte 1.000 Not Available [facility] [address], [place], [address], 10/09/2023 15:33:39 10/09/19 24 10/09/2023 urina lysis panel , auto Unknown Analyte 1.003- 1.035 Not Available [facility] [address], [place], [address], 10/09/2023 15:33:39 10/09/19 24 10/09/2023 urina lysis panel , auto Unknown Analyte 7.0 Not Available [facility] [address], [place], [address], 10/09/2023 15:33:39 10/09/19 24 10/09/2023 urina lysis panel , auto Unknown Analyte 5.0-8. 0 Not Available [facility] [address], [place], [address], 10/09/2023 15:33:39 10/09/19 24 10/09/2023 urina lysis panel , auto Unknown Analyte 25 Wilda/ul Trace Not Available [facility] [address], [place], [address], 10/09/2023 15:33:39 10/09/19 24 10/09/2023 urina lysis panel , auto Unknown Analyte Negati ve Not Available [facility] [address], [place], [address], 10/09/2023 15:33:39 10/09/19 24 10/09/2023 urina lysis panel , auto Unknown Analyte Negati ve Not Available [facility] [address], [place], [address], 10/09/2023 15:33:39 10/09/19 24 10/09/2023 urina lysis panel , auto Unknown Analyte Negati ve Not Available [facility] [address], [place], [address], 10/09/2023 15:33:39 10/09/19 24 10/09/2023 urina lysis panel , auto Unknown Analyte Negati ve Not Available [facility] [address], [place], [address], 10/09/2023 15:33:39 10/09/19 24 10/09/2023 urina lysis panel , auto Unknown Analyte Negati ve Not Available [facility] [address], [place], [address], 10/09/2023 15:33:39 10/09/19 24 10/09/2023 urina lysis panel , auto Unknown Analyte Normal Not Available [facility] [address], [place], [address], 10/09/2023 15:33:39 10/09/19 24 10/09/2023 urina lysis panel , auto Unknown Analyte Normal Not Available [facility] [address], [place], [address], 10/09/2023 15:33:39 10/09/19 24 10/09/2023 urina lysis panel , auto Unknown Analyte Negati ve Not Available [facility] [address], [place], [address], 10/09/2023 15:33:39 10/09/19 24 10/09/2023 urina lysis panel , auto Unknown Analyte Negati ve Not Available [facility] [address], [place], [address], 10/09/2023 15:33:39 10/09/19 24 10/09/2023 urina lysis panel , auto Unknown Analyte Normal Not Available [facility] [address], [place], [address], 10/09/2023 15:33:39 10/09/19 24 10/09/2023 urina lysis panel , auto Unknown Analyte Normal 1 mg/dl Not Available [facility] [address], [place], [address], 10/09/2023 15:33:39 10/09/19 24 10/09/2023 urina lysis panel , auto Unknown Analyte Negati ve Not Available [facility] [address], [place], [address], 10/09/2023 15:33:39 10/09/19 24 10/09/2023 urina lysis panel , auto Unknown Analyte Negati ve Not Available [facility] [address], [place], [address], 10/09/2023 15:33:39 10/09/19 24 10/09/2023 urina lysis panel , auto Unknown Analyte Negati ve Not Available [facility] [address], [place], [address], 10/09/2023 15:33:39 10/09/19 24 10/09/2023 urina lysis panel , auto Unknown Analyte Negati ve Not Available [facility] [address], [place], [address], 10/09/2023 15:33:39 04/12/20 24 04/12/2024 urina lysis panel , auto Unknown Analyte Clean Catch Not Available [facility] [address], [place], [address], 04/12/2024 10:47:15 04/12/20 24 04/12/2024 urina lysis panel , auto Unknown Analyte Yellow Not Available [facility] [address], [place], [address], 04/12/2024 10:47:15 04/12/20 24 04/12/2024 urina lysis panel , auto Unknown Analyte Clear Not Available [facility] [address], [place], [address], 04/12/2024 10:47:15 04/12/20 24 04/12/2024 urina lysis panel , auto Unknown Analyte 1.005 Not Available [facility] [address], [place], [address], 04/12/2024 10:47:15 04/12/20 24 04/12/2024 urina lysis panel , auto Unknown Analyte 1.003- 1.035 Not Available [facility] [address], [place], [address], 04/12/2024 10:47:15 04/12/20 24 04/12/2024 urina lysis panel , auto Unknown Analyte 5.0 Not Available [facility] [address], [place], [address], 04/12/2024 10:47:15 04/12/20 24 04/12/2024 urina lysis panel , auto Unknown Analyte 5.0-8. 0 Not Available [facility] [address], [place], [address], 04/12/2024 10:47:15 04/12/20 24 04/12/2024 urina lysis panel , auto Unknown Analyte Negati ve Not Available [facility] [address], [place], [address], 04/12/2024 10:47:15 04/12/20 24 04/12/2024 urina lysis panel , auto Unknown Analyte Negati ve Not Available [facility] [address], [place], [address], 04/12/2024 10:47:15 04/12/20 24 04/12/2024 urina lysis panel , auto Unknown Analyte Negati ve Not Available [facility] [address], [place], [address], 04/12/2024 10:47:15 04/12/20 24 04/12/2024 urina lysis panel , auto Unknown Analyte Negati ve Not Available [facility] [address], [place], [address], 04/12/2024 10:47:15 04/12/20 24 04/12/2024 urina lysis panel , auto Unknown Analyte Negati ve Not Available [facility] [address], [place], [address], 04/12/2024 10:47:15 04/12/20 24 04/12/2024 urina lysis panel , auto Unknown Analyte Negati ve Not Available [facility] [address], [place], [address], 04/12/2024 10:47:15 04/12/20 24 04/12/2024 urina lysis panel , auto Unknown Analyte Normal Not Available [facility] [address], [place], [address], 04/12/2024 10:47:15 04/12/20 24 04/12/2024 urina lysis panel , auto Unknown Analyte Normal Not Available [facility] [address], [place], [address], 04/12/2024 10:47:15 04/12/20 24 04/12/2024 urina lysis panel , auto Unknown Analyte Negati ve Not Available [facility] [address], [place], [address], 04/12/2024 10:47:15 04/12/20 24 04/12/2024 urina lysis panel , auto Unknown Analyte Negati ve Not Available [facility] [address], [place], [address], 04/12/2024 10:47:15 04/12/2004/12/2024 urina lysis panel , auto Unknown Analyte Normal Not Available [facility] [address], [place], [address], 04/12/2024 10:47:15 04/12/20 24 04/12/2024 urina lysis panel , auto Unknown Analyte Normal 1 mg/dl Not Available [facility] [address], [place], [address], 04/12/2024 10:47:15 04/12/2004/12/2024 urina lysis panel , auto Unknown Analyte Negati ve Not Available [facility] [address], [place], [address], 04/12/2024 10:47:15 04/12/2004/12/2024 urina lysis panel , auto Unknown Analyte Negati ve Not Available [facility] [address], [place], [address], 04/12/2024 10:47:15 04/12/20 24 04/12/2024 urina lysis panel , auto Unknown Analyte Negati ve Not Available [facility] [address], [place], [address], 04/12/2024 10:47:15 04/12/20 24 04/12/2024 urina lysis panel , auto Unknown Analyte Negati ve Not Available [facility] [address], [place], [address], 04/12/2024 10:47:15 04/17/20 24 04/17/2024 urina lysis panel , auto Unknown Analyte Clean Catch Not Available [facility] [address], [place], [address], 04/17/2024 13:36:34 04/17/20 24 04/17/2024 urina lysis panel , auto Unknown Analyte Yellow Not Available [facility] [address], [place], [address], 04/17/2024 13:36:34 04/17/20 24 04/17/2024 urina lysis panel , auto Unknown Analyte Clear Not Available [facility] [address], [place], [address], 04/17/2024 13:36:34 04/17/20 24 04/17/2024 urina lysis panel , auto Unknown Analyte 1.005 Not Available [facility] [address], [place], [address], 04/17/2024 13:36:34 04/17/20 24 04/17/2024 urina lysis panel , auto Unknown Analyte 1.003- 1.035 Not Available [facility] [address], [place], [address], 04/17/2024 13:36:34 04/17/20 24 04/17/2024 urina lysis panel , auto Unknown Analyte 5.0 Not Available [facility] [address], [place], [address], 04/17/2024 13:36:34 04/17/20 24 04/17/2024 urina lysis panel , auto Unknown Analyte 5.0-8. 0 Not Available [facility] [address], [place], [address], 04/17/2024 13:36:34 04/17/20 24 04/17/2024 urina lysis panel , auto Unknown Analyte Negati ve Not Available [facility] [address], [place], [address], 04/17/2024 13:36:34 04/17/20 24 04/17/2024 urina lysis panel , auto Unknown Analyte Negati ve Not Available [facility] [address], [place], [address], 04/17/2024 13:36:34 04/17/20 24 04/17/2024 urina lysis panel , auto Unknown Analyte Negati ve Not Available [facility] [address], [place], [address], 04/17/2024 13:36:34 04/17/20 24 04/17/2024 urina lysis panel , auto Unknown Analyte Negati ve Not Available [facility] [address], [place], [address], 04/17/2024 13:36:34 04/17/20 24 04/17/2024 urina lysis panel , auto Unknown Analyte Negati ve Not Available [facility] [address], [place], [address], 04/17/2024 13:36:34 04/17/20 24 04/17/2024 urina lysis panel , auto Unknown Analyte Negati ve Not Available [facility] [address], [place], [address], 04/17/2024 13:36:34 04/17/20 24 04/17/2024 urina lysis panel , auto Unknown Analyte Normal Not Available [facility] [address], [place], [address], 04/17/2024 13:36:34 04/17/20 24 04/17/2024 urina lysis panel , auto Unknown Analyte Normal Not Available [facility] [address], [place], [address], 04/17/2024 13:36:34 04/17/20 24 04/17/2024 urina lysis panel , auto Unknown Analyte Negati ve Not Available [facility] [address], [place], [address], 04/17/2024 13:36:34 04/17/20 24 04/17/2024 urina lysis panel , auto Unknown Analyte Negati ve Not Available [facility] [address], [place], [address], 04/17/2024 13:36:34 04/17/20 24 04/17/2024 urina lysis panel , auto Unknown Analyte Normal Not Available [facility] [address], [place], [address], 04/17/2024 13:36:34 04/17/20 24 04/17/2024 urina lysis panel , auto Unknown Analyte Normal 1 mg/dl Not Available [facility] [address], [place], [address], 04/17/2024 13:36:34 04/17/20 24 04/17/2024 urina lysis panel , auto Unknown Analyte Negati ve Not Available [facility] [address], [place], [address], 04/17/2024 13:36:34 04/17/20 24 04/17/2024 urina lysis panel , auto Unknown Analyte Negati ve Not Available [facility] [address], [place], [address], 04/17/2024 13:36:34 04/17/20 24 04/17/2024 urina lysis panel , auto Unknown Analyte Negati ve Not Available [facility] [address], [place], [address], 04/17/2024 13:36:34 04/17/20 24 04/17/2024 urina lysis panel , auto Unknown Analyte Negati ve Not Available [facility] [address], [place], [address], 04/17/2024 13:36:34 10/12/19 25 10/11/2024 urina lysis panel , auto Unknown Analyte Clean Catch Not Available [facility] [address], [place], [address], 10/11/2024 08:54:23 10/12/19 25 10/11/2024 urina lysis panel , auto Unknown Analyte Yellow Not Available [facility] [address], [place], [address], 10/11/2024 08:54:23 10/12/1910/11/2024 urina lysis panel , auto Unknown Analyte Clear Not Available [facility] [address], [place], [address], 10/11/2024 08:54:23 10/12/19 25 10/11/2024 urina lysis panel , auto Unknown Analyte 1.010 Not Available [facility] [address], [place], [address], 10/11/2024 08:54:23 10/12/19 25 10/11/2024 urina lysis panel , auto Unknown Analyte 1.003 - 1.030 Not Available [facility] [address], [place], [address], 10/11/2024 08:54:23 10/12/19 25 10/11/2024 urina lysis panel , auto Unknown Analyte 6.0 Not Available [facility] [address], [place], [address], 10/11/2024 08:54:23 10/12/19 25 10/11/2024 urina lysis panel , auto Unknown Analyte 5.0 - 8.0 Not Available [facility] [address], [place], [address], 10/11/2024 08:54:23 10/12/19 25 10/11/2024 urina lysis panel , auto Unknown Analyte Negati ve Not Available [facility] [address], [place], [address], 10/11/2024 08:54:23 10/12/19 25 10/11/2024 urina lysis panel , auto Unknown Analyte Negati ve Not Available [facility] [address], [place], [address], 10/11/2024 08:54:23 10/12/19 25 10/11/2024 urina lysis panel , auto Unknown Analyte Negati ve Not Available [facility] [address], [place], [address], 10/11/2024 08:54:23 10/12/19 25 10/11/2024 urina lysis panel , auto Unknown Analyte Negati ve Not Available [facility] [address], [place], [address], 10/11/2024 08:54:23 10/12/19 25 10/11/2024 urina lysis panel , auto Unknown Analyte Negati ve Not Available [facility] [address], [place], [address], 10/11/2024 08:54:23 10/12/19 25 10/11/2024 urina lysis panel , auto Unknown Analyte Negati ve Not Available [facility] [address], [place], [address], 10/11/2024 08:54:23 10/12/19 25 10/11/2024 urina lysis panel , auto Unknown Analyte Normal Not Available [facility] [address], [place], [address], 10/11/2024 08:54:23 10/12/19 25 10/11/2024 urina lysis panel , auto Unknown Analyte Normal Not Available [facility] [address], [place], [address], 10/11/2024 08:54:23 10/12/19 25 10/11/2024 urina lysis panel , auto Unknown Analyte Negati ve Not Available [facility] [address], [place], [address], 10/11/2024 08:54:23 10/12/19 25 10/11/2024 urina lysis panel , auto Unknown Analyte Negati ve Not Available [facility] [address], [place], [address], 10/11/2024 08:54:23 10/12/19 25 10/11/2024 urina lysis panel , auto Unknown Analyte Normal Not Available [facility] [address], [place], [address], 10/11/2024 08:54:23 10/12/19 25 10/11/2024 urina lysis panel , auto Unknown Analyte Normal Not Available [facility] [address], [place], [address], 10/11/2024 08:54:23 10/12/19 25 10/11/2024 urina lysis panel , auto Unknown Analyte Negati ve Not Available [facility] [address], [place], [address], 10/11/2024 08:54:23 10/12/19 25 10/11/2024 urina lysis panel , auto Unknown Analyte Negati ve Not Available [facility] [address], [place], [address], 10/11/2024 08:54:23 10/12/19 25 10/11/2024 urina lysis panel , auto Unknown Analyte Negati ve Not Available [facility] [address], [place], [address], 10/11/2024 08:54:23 10/12/19 25 10/11/2024 urina lysis panel , auto Unknown Analyte Negati ve Not Available [facility] [address], [place], [address], 10/11/2024 08:54:23 Result Notes None recorded. Problems No Known Problems Procedures Surgical History Date Name Laterality Status Provider Name and Address Organization Details Recorded Time procedure on knee completed Martha Gallagher [facility] 06/28/2021 11:45:48 tonsillectomy completed Martha CONTRERAS [facility] 06/28/2021 11:46:15 nasal septoplasty completed Martha Gallagher [facility] 06/28/2021 11:46:26 Back Surgery completed Bridger Tom [facility] 12/06/2022 14:03:00 procedure on nasal septum completed Bridger Longoriat [place] - [facility] 12/06/2022 14:03:21 Stent completed Murelene Negro [place] [facility] 12/06/2022 14:03:29 Imaging Results None recorded. Procedure [...] and Address Organization Details Last Updated DateTime 10/09/2023 172.72 cm 32.2 kg/m2 68939.58 g Rehana Joselo [facility] 10/09/2023 15:36:10 Date Recorded Body height Body mass index (BMI) Body weight Provider Name and Address Organization Details Last Updated DateTime 04/17/2024 175.26 cm 31.3 kg/m2 32976.58 g Rehana Joselo [facility] 04/17/2024 13:35:22 Date Recorded Body height Body mass index (BMI) Body weight Provider Name and Address Organization Details Last Updated DateTime 10/11/2024 175.26 cm 31.7 kg/m2 10647.36 g Hyacinth Hernandez [facility] 10/11/2024 09:17:14 Social History Question Answer Notes LastModified by Organizat ion Details LastModified Time Tobacco Smoking Status Former Smoker Martha dwyer [facility] 06/28/2021 11:44:59 What Is Your Level Of Alcohol Consumption? Moderate 1 [place] A Day Information not available 12/06/2022 What Was The Date Of Your Most Recent Tobacco Screening? 10/11/2024 [email or web address] Information not available 10/11/2024 What Is Your [...] History Condition Response Diabetes Y Arthritis Y High Cholesterol Y Hypertension Y Past Encounters Encounter ID Performer Location Encounter Start Date Encounter Closed Date Diagnosis/Indication Diagnosis SNOMED-CT Code Diagnosis ICD10 Code Diagnosis Note [id number] TAMI THOMAS MD [facility] [address] [place] [id number] 06/28/2021 10:20:53 06/29/2021 08:41:35 Lumbar radiculopathy 574290227 M54.16 [id number] TAMI THOMAS MD [facility] [address] [place] [address] 07/05/2021 08:50:31 07/05/2021 10:49:09 Lumbar radiculopathy 234911349 M54.16 [id number] TAMI THOMAS MD SURGERY SCHEDULE [address] [place] [address] 08/13/2021 10:45:40 08/18/2021 12:38:32 [id number] TAMI THOMAS MD [facility] [address] [place] [address] 09/20/2021 09:45:38 09/20/2021 14:52:49 Postoperative care [id number] Z48.89 [id number] TAMI THOMAS MD [facility] [address] [place] [address] 11/15/2021 09:31:36 11/16/2021 16:23:52 Lumbar radiculopathy [id number] M54.16 [id number] CARMELINA BLACK MD [facility] [address] [place] [address] 12/06/2022 13:09:16 12/06/2022 14:49:21 Benign prostatic hyperplasia with outflow obstruction [id number] N40.1 Follow-up 2 months [id number] CARMELINA BLACK MD [facility] [address] [place] [address] 02/10/2023 10:11:35 02/10/2023 11:34:58 Benign prostatic hyperplasia with outflow obstruction 996124264 N40.1 Follow-up 6 months continue tamsulosin twice daily [id number] CARMELINA BLACK MD [facility] [address] [place] [address] 10/09/2023 15:21:34 10/09/2023 16:21:28 Benign prostatic hyperplasia with outflow obstruction 902921944 N40.1 Follow-up 6 months continue tamsulosin twice daily Primary er ectile dysfunction 420218619 N52.9 [id number] CARMELINA BLACK MD [facility] [address] [place] [address] 04/17/2024 13:11:16 04/17/2024 13:53:30 Benign prostatic hyperplasia with outflow obstruction 630598072 N40.1 Follow-up 6 months continue tamsulosin twice daily Primary er ectile dysfunction 699071363 N52.9 Plan as above follow-up 6 months [id number] CARMELINA BLACK MD [facility] [address] [place] [address] 10/11/2024 08:40:07 10/11/2024 09:27:15 Benign prostatic hyperplasia with outflow obstruction 013615740 N40.1 Follow-up 6 months continue tamsulosin twice daily Primary er ectile dysfunction 740903933 N52.9 Plan as above follow-up 12 months, if he decides to proceed with the anterior urethral gel he will contact us and we will send a prescripti on to [facility] pharmacy Health Concerns Section Related Observation LastModified by Organization Detai ls LastModified Time None Recorded Concern Status LastModified by Organization Details LastModified Time None Recorded Advance Directives Directive None Recorded Payers Encounter Date Sequence Insurance Name Policy Number Policy Nolen Covered Member ID Nolen Member ID Guarantor Name 02/10/2023 1 [employer] (MEDICARE REPLACEMENT/AD VANTAGE - PPO) [id number] Ronn Yang [id number] Ronn Yang 10/09/2023 1 [employer] (MEDICARE REPLACEMENT/AD VANTAGE - PPO) [id number] Ronn Yang [id number] Ronn Yang 10/09/2023 1 [place] [id number] Ronn Yang [id number] Ronn Yang 04/17/2024 1 [place] [id number] Ronn Yang [id number] Ronn Yang 10/11/2024 1 [place] [id number] Ronn Yang [id number] Ronn Yang Notes Date Note Type Note Provider Name and Address Organization Details Recorded Time 02/10/2023 text/html Patient is here for scheduled follow-up after increasing his tamsulosin to twice daily. He states that he is doing much better and typically has nocturia x0. He had previous cystoscopy by Dr. Gonzalez and apparently has a very significant median lobe. So long as his symptoms are tolerable on current regimen we will observe him. CARMELINA BLACK MD [address] [place] [address] [place], [address], [facility] 02/21/2023 12:27:36 10/09/2023 text/html Patient is here last seen for some obstructive symptoms. He is also having issues with erectile dysfunction. He has previous cystoscopy by Dr. Gonzalez which showed a median lobe. He is still taking the tamsulosin twice per day and for the most part is satisfied but does have some postvoid dribbling. Typically has nocturia x 0. We previously discussed injection therapy for erectile dysfunction. We again discussed that and he would like to try that. Will start him out on 0.1 mL of Trimix. CARMELINA BLACK MD [address] [place] [address], [address], [facility] 10/09/2023 16:23:07 04/17/2024 text/html Patient is here in follow-up of obstructive urination symptoms. He continues to take tamsulosin twice per day. He typically does not have nocturia. Has had previous cystoscopy confirming a median lobe. He has some double voiding at times but this is not a bother to him. At his last visit in September we started him on injection therapy for erectile dysfunction. He is only had modest response to 0.2 mL. We discussed titration of dosage but also changing his concentration if this is unsuccessful. He will notify me regarding his success rate. Also he requested a theresa on the penis on appropriate site injection and this was performed bilaterally. States he had a PSA back in September which was 2.3 and stable CARMELINA BLACK MD [address] [place] [address] [place], [address], [facility] 04/17/2024 14:09:01 10/11/2024 text/html Patient is here for 6-month [...] nocturia x 0-1. CARMELINA BLACK MD [address] [facility], [place], [address], [facility] 10/11/2024 09:29:23
[2024-11-13] MEDS: SODIUM CHLORIDE 0.9% 10ML SYR (RAD ONLY) 10 ML IV ×2 (07:20→08:35)
--- NOTE | 2024-11-13 07:30 | NM_ITS ---
APPROVED REPORT Exam: Nuclear Stress Test Indication: cad, htn, hyperlipidemia, fm hx, sob Patient Location: Outpatient Stress Tech: Anni Matta OR Tech:Bianca ToriiboBRANDI RT (R)(N)(M) Ht: 5 ft 9 in Wt: 214 lbs HR: 51 bpm BP: 139/71 mmHg BSA: 2.13 m2 TID: 1.09 BMI: 31.5 History: cad, htn, hyperlipidemia, fm hx, sob Procedure: Patient exercised on Patrice protocol 9:07 minutes and sec, resting heart rate 51 bpm, resting blood pressure 139/71 mmHg, with exercise maximum heart rate achived was 137 bpm which is 93 % of the maximum predicted heart rate and blood pressure was 184/86 mmHg. Test was stopped due to leg fatigue. Patient has average exercise capacity, achieved 10.3 METs of workload on treadmill, the blood pressure response to exercise was normal. Cardiac Stress and Resting SPECT Images: Cardiac Stress and Resting SPECT images were obtained using technetium 99m Myoview 31.2 mCi stress and 10.14 mCi at rest. Resting and stress imaging in supine positions demonstrate an medium sized, mild, tapered fixed perfusion defect in the inferior LV wall. This is no longer visualized with prone stress imaging. Findings are suggestive of diaphragmatic attenuation. Gated imaging demonstrates normal global and regional LV systolic function. LVEF is calculated at 59%. Conclusion: Diaphragmatic attenuation is present. No evidence of fixed or reversible perfusion defects. Gated imaging demonstrates normal global and regional LV systolic function. LVEF is calculated at 59%. Electronically signed by : Carly Cifuentes MD 11/13/2024 12:42:44
[2024-11-13] MEDS: ISOTOPE MYOVIEW (PER STUDY) 1 DOSE IV (09:20)
== END 2024-11-13 23:59 | disposition home or self-care (01) ==
LOC: RAD 07:11
PROVIDERS: PCP Family Medicine; Visit Provider Physician Assistant
DX: I07.1 Rheumatic tricuspid insufficiency (principal); I34.0 Nonrheumatic mitral (valve) insufficiency; I25.10 Atherosclerotic heart disease of native coronary artery without angina pectoris; R06.02 Shortness of breath
CPT/HCPCS: 78452; 93017; 93018; A9502

== ENCOUNTER 2024-11-18 08:23 | Outpatient (CLI) | payer MEDICARE, SELFPAY ==
--- NOTE | 2024-11-18 | CA_ITS ---
APPROVED REPORT EXAM: Comprehensive 2D, Doppler, and color-flow Echocardiogram Dust Collector Treater: Sally Katz RT(R) Ht: 5 ft 9 in Wt: 214lbs BSA: 2.13 BP: 114/77 mmHg Indications: SOB, LVH, MR, TR, HTN, ex smoker, hyperlipidemia, CAD, RBBB, cardiomegaly 2D Dimensions Left Atrium 3.07 cm M: 3.0 - 4.0 LVEF (Alexander's) 61.40 % M: 52 - 72 LVOT 2.28 cm (M/F) 1.5-2.5 LV Volume 91.40 mL M: 62 - 150 LV Volume Index 42.9 mL/m2 M: 34 - 74 LA Volume 15.90 mL LA Volume Index 7.46 mL/m2 (M/F) 16-34 EF AP4 63.60 % EF AP2 57.2 % EF BP 61.4 % GL Strain -21.1 % M-Mode Dimensions RVDd 2.93 cm (0.9-2.6) LVDd 5.64 cm (3.5-5.7) Ao Diam 2.60 cm (2.0-3.7) LVDs 4.03 cm (3.5-5.7) IVSd 0.72 cm (0.6-1.1) PWd 0.64 cm (0.6-1.1) EF (Teich) 54.40% FS 28.50% EDV (Teich) 156.20 mL ESV (Teich) 71.30 mL LV Diastology E Decel Time 286 (160-240 msec) E/A Ratio 1.0 MED E' 6.1 (>= 7 cm/sec) E'/MED E' Ratio 21.08 (<= 14) LAT E' 8.8 (>= 10 cm/sec) E/LAT E' Ratio 14.61 (<= 14) Mitral Valve MV E Max Ousmane. 129.0 (40-130 cm/s) MV A Velocity 134.0 (40-130 cm/s) E/A Ratio 0.96 MV Decel. Time 286 (160-240 ms) Left Ventricle The left ventricle is normal size. The left ventricular systolic function is normal. The left ventricular ejection fraction is within the normal range. There is increased LV wall thickness. There is normal LV segmental wall motion. The left ventricular diastolic function is normal. LVEF is 55%. Right Ventricle The right ventricle is normal size. The right ventricular systolic function is normal. Atria The left atrium size is normal. The right atrium size is normal. There is no Doppler evidence of interatrial shunt. Aortic Valve The aortic valve is mildly thickened. Mild aortic regurgitation. There is no aortic valvular stenosis. Mitral Valve The mitral valve is normal in structure. No evidence of mitral valve stenosis. Trace mitral regurgitation. Tricuspid Valve Tricuspid valve is grossly normal in structure and function. Trace tricuspid regurgitation. There is insufficient TR jet to estimate RVSP. Pulmonic Valve The pulmonary valve is normal in structure. Trace pulmonic regurgitation. Great Vessels The aortic root is normal in size. IVC is normal in size and collapses >50% with inspiration. Pericardium There is no pericardial effusion. Other Information Study Quality: Fair Conclusion Normal biventricular systolic function. Mild AI. Electronically signed by : Carly Cifuentes MD 11/19/2024 11:06:41
--- OUTSIDE RECORDS SUMMARY | 2024-11-18 08:29 | XMS_ITS | Continuity of Care Document ---
Author Organization [facility] Florencio joya [facility] Address [address] [place] [address] Care Team Providers Care Donor Recruitment Manager Name Role Phone JOHN FU Referring Provider [phone] TAMI SINCLAIR Primary Care Provider Assessment No assessment recorded. Plan of Treatment Reminders Order Date Submit Date Provider Last Modified By Organization Details Last Modified Time Details Appointments RECHECK 2025 09:00A M CARMELINA BLACK MD Not available Not available Not available Lab urinalysi s panel, auto [email or web address] [facility], [address] [facility] [address], [place], [address], 10/11/2024 09:28:29 Referral None recorded. Procedures None recorded. Surgeries None recorded. Imaging None recorded. Medication Orders tamsulosi n 0.4 mg capsule 2024 025 [facility] 591, [address], [address], 10/11/2024 09:28:38 Patient TargetsNo targets recorded. Patient InstructionsNo instructions recorded. Reason for Referral None Reported. Results Created Date Observation Date Name Description Value Unit Range Abnormal Flag Note LastModifiedBy Organization Detail LastModifiedTime 10/12/19 25 10/11/2024 urina lysis panel , auto Unknown Analyte Clean Catch Not Available [facility] [address], [place], [address], 10/11/2024 08:54:23 10/12/19 25 10/11/2024 urina lysis panel , auto Unknown Analyte Yellow Not Available [facility] [address], [place], [address], 10/11/2024 08:54:23 10/12/19 25 10/11/2024 urina lysis panel , auto Unknown Analyte Clear Not Available [facility] [address], [place], [address], 10/11/2024 08:54:23 10/12/19 25 10/11/2024 urina lysis panel , auto Unknown Analyte 1.010 Not Available [facility] [address], [place], [address], 10/11/2024 08:54:23 10/12/19 25 10/11/2024 urina lysis panel , auto Unknown Analyte 1.003 - 1.030 Not Available [facility] [address], [place], [address], 10/11/2024 08:54:23 10/12/19 25 10/11/2024 urina lysis panel , auto Unknown Analyte 6.0 Not Available [facility] [address], [place], [address], 10/11/2024 08:54:23 10/12/19 25 10/11/2024 urina lysis panel , auto Unknown Analyte 5.0 - 8.0 Not Available [facility] [address], [place], [address], 10/11/2024 08:54:23 10/12/19 25 10/11/2024 urina lysis panel , auto Unknown Analyte Negati ve Not Available [facility] [address], [place], [address], 10/11/2024 08:54:23 10/12/19 25 10/11/2024 urina lysis panel , auto Unknown Analyte Negati ve Not Available [facility] [address], [place], [address], 10/11/2024 08:54:23 10/12/19 25 10/11/2024 urina lysis panel , auto Unknown Analyte Negati ve Not Available [facility] [address], [place], [address], 10/11/2024 08:54:23 10/12/19 25 10/11/2024 urina lysis panel , auto Unknown Analyte Negati ve Not Available [facility] [address], [place], [address], 10/11/2024 08:54:23 10/12/19 25 10/11/2024 urina lysis panel , auto Unknown Analyte Negati ve Not Available [facility] [address], [place], [address], 10/11/2024 08:54:23 10/12/19 25 10/11/2024 urina lysis panel , auto Unknown Analyte Negati ve Not Available [facility] [address], [place], [address], 10/11/2024 08:54:23 10/12/19 25 10/11/2024 urina lysis panel , auto Unknown Analyte Normal Not Available [facility] [address], [place], [address], 10/11/2024 08:54:23 10/12/19 25 10/11/2024 urina lysis panel , auto Unknown Analyte Normal Not Available [facility] [address], [place], [address], 10/11/2024 08:54:23 10/12/19 25 10/11/2024 urina lysis panel , auto Unknown Analyte Negati ve Not Available [facility] [address], [place], [address], 10/11/2024 08:54:23 10/12/19 25 10/11/2024 urina lysis panel , auto Unknown Analyte Negati ve Not Available [facility] [address], [place], [address], 10/11/2024 08:54:23 10/12/19 25 10/11/2024 urina lysis panel , auto Unknown Analyte Normal Not Available [facility] [address], [place], [address], 10/11/2024 08:54:23 10/12/19 25 10/11/2024 urina lysis panel , auto Unknown Analyte Normal Not Available [facility] [address], [place], [address], 10/11/2024 08:54:23 10/12/19 25 10/11/2024 urina lysis panel , auto Unknown Analyte Negati ve Not Available [facility] [address] [place] [address] [address], [place], [address], 10/11/2024 08:54:23 10/12/19 25 10/11/2024 urina lysis panel , auto Unknown Analyte Negati ve Not Available [facility] [address] [facility] [address], [place], [address], 10/11/2024 08:54:23 10/12/19 25 10/11/2024 urina lysis panel , auto Unknown Analyte Negati ve Not Available [facility] [address], [place], [address], 10/11/2024 08:54:23 10/12/19 25 10/11/2024 urina lysis panel , auto Unknown Analyte Negati ve Not Available [facility] [address], [place], [address], 10/11/2024 08:54:23 Result Notes None recorded. Problems No Known Problems Procedures Surgical History Date Name Laterality Status Provider Name and Address Organization Details Recorded Time procedure on knee completed Martha Torre Y [facility] 06/28/2021 11:45:48 tonsillectomy completed Martha Keegan CONTR[facility]AS [facility] 06/28/2021 11:46:15 nasal septoplasty completed Martha Keegan K Y [facility] 06/28/2021 11:46:26 Back Surgery completed Bridger Tom [facility] 12/06/2022 14:03:00 procedure on nasal septum completed Murelene Negro [facility] 12/06/2022 14:03:21 Stent completed Shirae Negro [facility] 12/06/2022 14:03:29 Imaging Results None recorded. Procedure [...] Updated DateTime 10/11/2024 175.26 cm 31.7 kg/m2 37348.36 [facility] 09:17:14 Social History Question Answer Notes LastModified by Organizat ion Details LastModified Time Tobacco Smoking Status [facility] 11:44:59 What Is Your Level Of Alcohol Consumption? Moderate 1 [place] A Day Information not available 12/06/2022 What Was The Date Of Your Most Recent Tobacco Screening? 10/11/2024 [email or web address] Information not available 10/11/2024 What Is Your [...] available 2022 14:02:10 Medical History Condition Response Arthritis Y High Cholesterol Y Diabetes Y Hypertension Y Past Encounters Encounter ID Performer Location Encounter Start Date Encounter Closed Date Diagnosis/Indication Diagnosis SNOMED-CT Code Diagnosis ICD10 Code Diagnosis Note [id number] CARMELINA BLACK MD [facility] [address] [place] [address] 10/11/2024 08:40:07 10/11/2024 09:27:15 Benign prostatic hyperplasia with outflow obstruction 646388456 N40.1 Follow-up 6 months continue tamsulosin twice daily Primary er ectile dysfunction 422538453 N52.9 Plan as above follow-up 12 months, if he decides to proceed with the anterior urethral gel he will contact us and we will send a prescripti on to [facility] Health Concerns Section Related Observation LastModified by Organization Detai ls LastModified Time None Recorded Concern Status LastModified by Organization Details LastModified Time None Recorded Payers Encounter Date Sequence Insurance Name Policy Number Policy Nolen Covered Member ID Nolen Member ID Guarantor Name 10/11/2024 1 [place] [employer] [place] [facility] ACCESS (MEDICARE REPLACEMENT REGIONAL PPO) [id number] Ronn Yang [id number] Ronn Yang Notes Date Note Type [...] nocturia x 0-1. CARMELINA BLACK MD [address] [place], [address], [facility] 10/11/2024 09:29:23
== END 2024-11-18 23:59 | disposition home or self-care (01) ==
LOC: RT 08:23
PROVIDERS: PCP Family Medicine; Visit Provider Physician Assistant
DX: I51.7 Cardiomegaly (principal); I34.0 Nonrheumatic mitral (valve) insufficiency; I25.10 Atherosclerotic heart disease of native coronary artery without angina pectoris; R06.02 Shortness of breath
CPT/HCPCS: 93306

== ENCOUNTER 2024-12-20 10:45 | Outpatient (CLI) | payer MEDICARE, SELFPAY ==
[2024-12-20 17:58] LABS: Basophils % 0.7 % (0.1-2.0); Eosinophils # 0.2 Kmm3 (0.0-0.4); Eosinophils % 3.7 % (0.1-12.0); Hemoglobin 15.5 g/dL (14.1-18.0); Immature Granulocytes # 0.03 10^3uL; Immature Granulocytes % 0.5 %; Lymphocytes # 1.8 K/mm3 (0.7-4.5); Lymphocytes % 31.6 % (10-50); Mean Corpuscular Hemoglobin 31.5 pg (27.0-31.2); Mean Corpuscular Volume 95.5 fl (80-94); Mean Platelet Volume 11.6 fl (7.4-10.4); Monocytes # 0.7 K/mm3 (0.1-1.0); Monocytes % 11.6 % (1.7-9.3); Neutrophils % 51.9 % (37.0-80.0); Nucleated Red Blood Cells # 0 10^3/uL; Nucleated Red Blood Cells % 0 %; Platelet Count 215 K/mm3 (142-424); Red Blood Count 4.92 M/mm3 (4.60-6.20); Red Cell Distribution Width 13.1 % (11.5-17.5); Red Cell Distribution Width-SD 46.3 fL; White Blood Count 5.7 K/mm3 (4.8-10.8)
[2024-12-20 18:13] LABS: Hemoglobin A1C 5.6 % (4.0-6.0)
[2024-12-20 18:29] LABS: Alanine Aminotransferase 20 U/L (12-78); Albumin Level 4.5 g/dl (3.5-5.0); Albumin/Globulin Ratio 1.9 (1.1-1.8); Alkaline Phosphatase 66 U/L (38-126); Anion Gap 12.3 mEq/L (5-15); Aspartate Amino Transferase 30 U/L (17-59); Bilirubin,Total 0.5 mg/dl (0.2-1.3); Blood Urea Nitrogen 19 mg/dl (9-20); Calcium 9.1 mg/dl (8.4-10.2); Carbon Dioxide 29 mmol/L (22.0-30.0); Chloride 102 mmol/L (98-107); Chol/HDL Ratio 1.8 (1-3.5); Cholesterol 112 mg/dl (140-200); Estimated Glomerular Filt Rate 65 ml/min (>60); GFR (African American) 79 ML/MIN (>60); Globulin 2.4 g/dL (1.3-3.2); Glucose 118 mg/dl (74-100); HDL Cholesterol 63 mg/dl (40-60); Potassium 4.3 mmoL/L (3.5-5.1); Sodium 139 mmol/L (136-145); Total Protein,Serum 6.9 g/dl (6.3-8.2); Triglycerides 76 mg/dl (30-150); VLDL Cholesterol 15 mg/dL (0-40)
[2024-12-20 18:40] LABS: Direct LDL Cholesterol 41.77 mg/dL (100-129)
[2024-12-20 18:42] LABS: 25-OH Vitamin D, Total 41.9 ng/mL (30-100)
[2024-12-20 18:58] LABS: Prostate Specific Ag Screen 2.3 ng/ml (0.0-4.0)
--- OUTSIDE RECORDS SUMMARY | 2024-12-24 10:47 | XMS_ITS | Data Portability ---
Author Organization [facility] Astrid joya, [place] [facility] Address [address] [facility] [address] [place] [address] Care Team Providers Care Wood Hacker Name Role Phone JOHN FU Referring Provider TAMI SINCLAIR Primary Care Provider [phone] Assessment No assessment recorded. Plan of Treatment Reminders Order Date Submit Date Provider Last Modified By Organization Details Last Modified Time Details Appointments RECHECK 2025 09:00A M CARMELINA BLACK MD Not available Not available Not available Lab urinalysi s panel, auto 2024 025 [email or web address] [facility], [address], [place], [address], 10/11/2024 09:28:29 urinalysi s panel, auto 2023 024 [email or web address] [facility], [address], [place], [address], 04/17/2024 14:08:25 urinalysi s panel, auto 2023 024 [email or web address] [facility], [address], [place], [address], 10/09/2023 16:22:35 urinalysi s panel, auto 2022 023 [facility], [address], [place], [address], 02/21/2023 12:27:08 Referral None recorded. Procedures None recorded. Surgeries None recorded. Imaging None recorded. Medication Orders tamsulosi n 0.4 mg capsule 2024 025 [facility], [address], [address], 10/11/2024 09:28:38 Trimix (papaveri ne--phent alom-alpr ost 30mg-1mg- 10mcg/ml intracave rnosal soln) 2023 024 [facility], [address], [place], [place], [id number], 10/09/2023 16:34:34 Patient TargetsNo targets recorded. Patient InstructionsNo instructions recorded. Reason for Referral None Reported. Results Created Date Observation Date Name Description Value Unit Range Abnormal Flag Note LastModifiedBy Organization Detail LastModifiedTime 02/11/2002/10/2023 urina lysis panel , auto Unknown Analyte Clean Catch Not Available [facility] [address], [address], 02/10/2023 11:22:45 02/11/2002/10/2023 urina lysis panel , auto Unknown Analyte Yellow Not Available [facility] [address], [address], 02/10/2023 11:22:45 02/11/2002/10/2023 urina lysis panel , auto Unknown Analyte Clear Not Available [facility] [address], [address], 02/10/2023 11:22:45 02/11/20 23 02/10/2023 urina lysis panel , auto Unknown Analyte 1.015 Not Available [facility] [address], [place], [address], 02/10/2023 11:22:45 02/11/20 23 02/10/2023 urina lysis panel , auto Unknown Analyte 8.0 Not Available [facility] [address], [place], [address], 02/10/2023 11:22:45 02/11/20 23 02/10/2023 urina lysis panel , auto Unknown Analyte Negati ve Not Available [facility] [address], [place], [address], 02/10/2023 11:22:45 02/11/20 23 02/10/2023 urina lysis panel , auto Unknown Analyte Negati ve Not Available [facility] [address], [place], [address], 02/10/2023 11:22:45 02/11/20 23 02/10/2023 urina lysis panel , auto Unknown Analyte Negati ve Not Available [facility] [address], [place], [address], 02/10/2023 11:22:45 02/11/20 23 02/10/2023 urina lysis panel , auto Unknown Analyte Normal Not Available [facility] [address], [place], [address], 02/10/2023 11:22:45 02/11/20 23 02/10/2023 urina lysis panel , auto Unknown Analyte Negati ve Not Available [facility] [address], [place], [address], 02/10/2023 11:22:45 02/11/20 23 02/10/2023 urina lysis panel , auto Unknown Analyte Normal Not Available [facility] [address], [place], [address], 02/10/2023 11:22:45 02/11/20 23 02/10/2023 urina lysis panel , auto Unknown Analyte Negati ve Not Available [facility] [address], [place], [address], 02/10/2023 11:22:45 02/11/20 23 02/10/2023 urina lysis panel , auto Unknown Analyte Negati ve Not Available [facility] [address], [place], [address], 02/10/2023 11:22:45 10/09/19 24 10/09/2023 urina lysis panel , auto Unknown Analyte Clean Catch Not Available [facility] [address], [place], [address], 10/09/2023 15:33:39 10/09/19 24 10/09/2023 urina lysis panel , auto Unknown Analyte Yellow Not Available [facility] [address], [place], [address], 10/09/2023 15:33:39 10/09/19 24 10/09/2023 urina lysis panel , auto Unknown Analyte Clear Not Available [facility] [address], [place], [address], 10/09/2023 15:33:39 10/09/19 24 10/09/2023 urina lysis panel , auto Unknown Analyte 1.000 Not Available [facility] [address], [place], [address], 10/09/2023 15:33:39 10/09/19 24 10/09/2023 urina lysis panel , auto Unknown Analyte 1.003- 1.035 Not Available [facility] [address], [place], [address], 10/09/2023 15:33:39 10/09/19 24 10/09/2023 urina lysis panel , auto Unknown Analyte 7.0 Not Available [facility] [address], [place], [address], 10/09/2023 15:33:39 10/09/19 24 10/09/2023 urina lysis panel , auto Unknown Analyte 5.0-8. 0 Not Available [facility] [address], [place], [address], 10/09/2023 15:33:39 10/09/19 24 10/09/2023 urina lysis panel , auto Unknown Analyte 25 Wilda/ul Trace Not Available [facility] [address], [place], [address], 10/09/2023 15:33:39 10/09/19 24 10/09/2023 urina lysis panel , auto Unknown Analyte Negati ve Not Available [facility] [address], [place], [address], 10/09/2023 15:33:39 10/09/19 24 10/09/2023 urina lysis panel , auto Unknown Analyte Negati ve Not Available [facility] [address], [place], [address], 10/09/2023 15:33:39 10/09/19 24 10/09/2023 urina lysis panel , auto Unknown Analyte Negati ve Not Available [facility] [address], [place], [address], 10/09/2023 15:33:39 10/09/19 24 10/09/2023 urina lysis panel , auto Unknown Analyte Negati ve Not Available [facility] [address], [place], [address], 10/09/2023 15:33:39 10/09/19 24 10/09/2023 urina lysis panel , auto Unknown Analyte Negati ve Not Available [facility] [address], [place], [address], 10/09/2023 15:33:39 10/09/19 24 10/09/2023 urina lysis panel , auto Unknown Analyte Normal Not Available [facility] [address], [place], [address], 10/09/2023 15:33:39 10/09/19 24 10/09/2023 urina lysis panel , auto Unknown Analyte Normal Not Available [facility] [address], [place], [address], 10/09/2023 15:33:39 10/09/19 24 10/09/2023 urina lysis panel , auto Unknown Analyte Negati ve Not Available [facility] [address], [place], [address], 10/09/2023 15:33:39 10/09/19 24 10/09/2023 urina lysis panel , auto Unknown Analyte Negati ve Not Available [facility] [address], [place], [address], 10/09/2023 15:33:39 10/09/19 24 10/09/2023 urina lysis panel , auto Unknown Analyte Normal Not Available [facility] [address], [place], [address], 10/09/2023 15:33:39 10/09/19 24 10/09/2023 urina lysis panel , auto Unknown Analyte Normal 1 mg/dl Not Available [facility] [address], [place], [address], 10/09/2023 15:33:39 10/09/19 24 10/09/2023 urina lysis panel , auto Unknown Analyte Negati ve Not Available [facility] [address], [place], [address], 10/09/2023 15:33:39 10/09/19 24 10/09/2023 urina lysis panel , auto Unknown Analyte Negati ve Not Available [facility] [address], [place], [address], 10/09/2023 15:33:39 10/09/19 24 10/09/2023 urina lysis panel , auto Unknown Analyte Negati ve Not Available [facility] [address], [place], [address], 10/09/2023 15:33:39 10/09/19 24 10/09/2023 urina lysis panel , auto Unknown Analyte Negati ve Not Available [facility] [address], [place], [address], 10/09/2023 15:33:39 04/12/20 24 04/12/2024 urina lysis panel , auto Unknown Analyte Clean Catch Not Available [facility] [address], [place], [address], 04/12/2024 10:47:15 04/12/20 24 04/12/2024 urina lysis panel , auto Unknown Analyte Yellow Not Available [facility] [address], [place], [address], 04/12/2024 10:47:15 04/12/20 24 04/12/2024 urina lysis panel , auto Unknown Analyte Clear Not Available [facility] [address], [place], [address], 04/12/2024 10:47:15 04/12/20 24 04/12/2024 urina lysis panel , auto Unknown Analyte 1.005 Not Available [facility] [address], [place], [address], 04/12/2024 10:47:15 04/12/20 24 04/12/2024 urina lysis panel , auto Unknown Analyte 1.003- 1.035 Not Available [facility] [address], [place], [address], 04/12/2024 10:47:15 04/12/20 24 04/12/2024 urina lysis panel , auto Unknown Analyte 5.0 Not Available [facility] [address], [place], [address], 04/12/2024 10:47:15 04/12/20 24 04/12/2024 urina lysis panel , auto Unknown Analyte 5.0-8. 0 Not Available [facility] [address], [place], [address], 04/12/2024 10:47:15 04/12/20 24 04/12/2024 urina lysis panel , auto Unknown Analyte Negati ve Not Available [facility] [address], [place], [address], 04/12/2024 10:47:15 04/12/20 24 04/12/2024 urina lysis panel , auto Unknown Analyte Negati ve Not Available [facility] [address], [place], [address], 04/12/2024 10:47:15 04/12/20 24 04/12/2024 urina lysis panel , auto Unknown Analyte Negati ve Not Available [facility] [address], [place], [address], 04/12/2024 10:47:15 04/12/20 24 04/12/2024 urina lysis panel , auto Unknown Analyte Negati ve Not Available [facility] [address], [place], [address], 04/12/2024 10:47:15 04/12/20 24 04/12/2024 urina lysis panel , auto Unknown Analyte Negati ve Not Available [facility] [address], [place], [address], 04/12/2024 10:47:15 04/12/20 24 04/12/2024 urina lysis panel , auto Unknown Analyte Negati ve Not Available [facility] [address], [place], [address], 04/12/2024 10:47:15 04/12/20 24 04/12/2024 urina lysis panel , auto Unknown Analyte Normal Not Available [facility] [address], [place], [address], 04/12/2024 10:47:15 04/12/20 24 04/12/2024 urina lysis panel , auto Unknown Analyte Normal Not Available [facility] [address], [place], [address], 04/12/2024 10:47:15 04/12/20 24 04/12/2024 urina lysis panel , auto Unknown Analyte Negati ve Not Available [facility] [address], [place], [address], 04/12/2024 10:47:15 04/12/20 24 04/12/2024 urina lysis panel , auto Unknown Analyte Negati ve Not Available [facility] [address], [place], [address], 04/12/2024 10:47:15 04/12/2004/12/2024 urina lysis panel , auto Unknown Analyte Normal Not Available [facility] [address], [place], [address], 04/12/2024 10:47:15 04/12/20 24 04/12/2024 urina lysis panel , auto Unknown Analyte Normal 1 mg/dl Not Available [facility] [address], [place], [address], 04/12/2024 10:47:15 04/12/2004/12/2024 urina lysis panel , auto Unknown Analyte Negati ve Not Available [facility] [address], [place], [address], 04/12/2024 10:47:15 04/12/2004/12/2024 urina lysis panel , auto Unknown Analyte Negati ve Not Available [facility] [address], [place], [address], 04/12/2024 10:47:15 04/12/20 24 04/12/2024 urina lysis panel , auto Unknown Analyte Negati ve Not Available [facility] [address], [place], [address], 04/12/2024 10:47:15 04/12/20 24 04/12/2024 urina lysis panel , auto Unknown Analyte Negati ve Not Available [facility] [address], [place], [address], 04/12/2024 10:47:15 04/17/20 24 04/17/2024 urina lysis panel , auto Unknown Analyte Clean Catch Not Available [facility] [address], [place], [address], 04/17/2024 13:36:34 04/17/20 24 04/17/2024 urina lysis panel , auto Unknown Analyte Yellow Not Available [facility] [address], [place], [address], 04/17/2024 13:36:34 04/17/20 24 04/17/2024 urina lysis panel , auto Unknown Analyte Clear Not Available [facility] [address], [place], [address], 04/17/2024 13:36:34 04/17/20 24 04/17/2024 urina lysis panel , auto Unknown Analyte 1.005 Not Available [facility] [address], [place], [address], 04/17/2024 13:36:34 04/17/20 24 04/17/2024 urina lysis panel , auto Unknown Analyte 1.003- 1.035 Not Available [facility] [address], [place], [address], 04/17/2024 13:36:34 04/17/20 24 04/17/2024 urina lysis panel , auto Unknown Analyte 5.0 Not Available [facility] [address], [place], [address], 04/17/2024 13:36:34 04/17/20 24 04/17/2024 urina lysis panel , auto Unknown Analyte 5.0-8. 0 Not Available [facility] [address], [place], [address], 04/17/2024 13:36:34 04/17/20 24 04/17/2024 urina lysis panel , auto Unknown Analyte Negati ve Not Available [facility] [address], [place], [address], 04/17/2024 13:36:34 04/17/20 24 04/17/2024 urina lysis panel , auto Unknown Analyte Negati ve Not Available [facility] [address], [place], [address], 04/17/2024 13:36:34 04/17/20 24 04/17/2024 urina lysis panel , auto Unknown Analyte Negati ve Not Available [facility] [address], [place], [address], 04/17/2024 13:36:34 04/17/20 24 04/17/2024 urina lysis panel , auto Unknown Analyte Negati ve Not Available [facility] [address], [place], [address], 04/17/2024 13:36:34 04/17/20 24 04/17/2024 urina lysis panel , auto Unknown Analyte Negati ve Not Available [facility] [address], [place], [address], 04/17/2024 13:36:34 04/17/20 24 04/17/2024 urina lysis panel , auto Unknown Analyte Negati ve Not Available [facility] [address], [place], [address], 04/17/2024 13:36:34 04/17/20 24 04/17/2024 urina lysis panel , auto Unknown Analyte Normal Not Available [facility] [address], [place], [address], 04/17/2024 13:36:34 04/17/20 24 04/17/2024 urina lysis panel , auto Unknown Analyte Normal Not Available [facility] [address], [place], [address], 04/17/2024 13:36:34 04/17/20 24 04/17/2024 urina lysis panel , auto Unknown Analyte Negati ve Not Available [facility] [address], [place], [address], 04/17/2024 13:36:34 04/17/20 24 04/17/2024 urina lysis panel , auto Unknown Analyte Negati ve Not Available [facility] [address], [place], [address], 04/17/2024 13:36:34 04/17/20 24 04/17/2024 urina lysis panel , auto Unknown Analyte Normal Not Available [facility] [address], [place], [address], 04/17/2024 13:36:34 04/17/20 24 04/17/2024 urina lysis panel , auto Unknown Analyte Normal 1 mg/dl Not Available [facility] [address], [place], [address], 04/17/2024 13:36:34 04/17/20 24 04/17/2024 urina lysis panel , auto Unknown Analyte Negati ve Not Available [facility] [address], [place], [address], 04/17/2024 13:36:34 04/17/20 24 04/17/2024 urina lysis panel , auto Unknown Analyte Negati ve Not Available [facility] [address], [place], [address], 04/17/2024 13:36:34 04/17/20 24 04/17/2024 urina lysis panel , auto Unknown Analyte Negati ve Not Available [facility] [address], [place], [address], 04/17/2024 13:36:34 04/17/20 24 04/17/2024 urina lysis panel , auto Unknown Analyte Negati ve Not Available [facility] [address], [place], [address], 04/17/2024 13:36:34 10/12/19 25 10/11/2024 urina lysis panel , auto Unknown Analyte Clean Catch Not Available [facility] [address], [place], [address], 10/11/2024 08:54:23 10/12/19 25 10/11/2024 urina lysis panel , auto Unknown Analyte Yellow Not Available [facility] [address], [place], [address], 10/11/2024 08:54:23 10/12/1910/11/2024 urina lysis panel , auto Unknown Analyte Clear Not Available [facility] [address], [place], [address], 10/11/2024 08:54:23 10/12/19 25 10/11/2024 urina lysis panel , auto Unknown Analyte 1.010 Not Available [facility] [address], [place], [address], 10/11/2024 08:54:23 10/12/19 25 10/11/2024 urina lysis panel , auto Unknown Analyte 1.003 - 1.030 Not Available [facility] [address], [place], [address], 10/11/2024 08:54:23 10/12/19 25 10/11/2024 urina lysis panel , auto Unknown Analyte 6.0 Not Available [facility] [address], [place], [address], 10/11/2024 08:54:23 10/12/19 25 10/11/2024 urina lysis panel , auto Unknown Analyte 5.0 - 8.0 Not Available [facility] [address], [place], [address], 10/11/2024 08:54:23 10/12/19 25 10/11/2024 urina lysis panel , auto Unknown Analyte Negati ve Not Available [facility] [address], [place], [address], 10/11/2024 08:54:23 10/12/19 25 10/11/2024 urina lysis panel , auto Unknown Analyte Negati ve Not Available [facility] [address], [place], [address], 10/11/2024 08:54:23 10/12/19 25 10/11/2024 urina lysis panel , auto Unknown Analyte Negati ve Not Available [facility] [address], [place], [address], 10/11/2024 08:54:23 10/12/19 25 10/11/2024 urina lysis panel , auto Unknown Analyte Negati ve Not Available [facility] [address], [place], [address], 10/11/2024 08:54:23 10/12/19 25 10/11/2024 urina lysis panel , auto Unknown Analyte Negati ve Not Available [facility] [address], [place], [address], 10/11/2024 08:54:23 10/12/19 25 10/11/2024 urina lysis panel , auto Unknown Analyte Negati ve Not Available [facility] [address], [place], [address], 10/11/2024 08:54:23 10/12/19 25 10/11/2024 urina lysis panel , auto Unknown Analyte Normal Not Available [facility] [address], [place], [address], 10/11/2024 08:54:23 10/12/19 25 10/11/2024 urina lysis panel , auto Unknown Analyte Normal Not Available [facility] [address], [place], [address], 10/11/2024 08:54:23 10/12/19 25 10/11/2024 urina lysis panel , auto Unknown Analyte Negati ve Not Available [facility] [address], [place], [address], 10/11/2024 08:54:23 10/12/19 25 10/11/2024 urina lysis panel , auto Unknown Analyte Negati ve Not Available [facility] [address], [place], [address], 10/11/2024 08:54:23 10/12/19 25 10/11/2024 urina lysis panel , auto Unknown Analyte Normal Not Available [facility] [address], [place], [address], 10/11/2024 08:54:23 10/12/19 25 10/11/2024 urina lysis panel , auto Unknown Analyte Normal Not Available [facility] [address], [place], [address], 10/11/2024 08:54:23 10/12/19 25 10/11/2024 urina lysis panel , auto Unknown Analyte Negati ve Not Available [facility] [address], [place], [address], 10/11/2024 08:54:23 10/12/19 25 10/11/2024 urina lysis panel , auto Unknown Analyte Negati ve Not Available [facility] [address], [place], [address], 10/11/2024 08:54:23 10/12/19 25 10/11/2024 urina lysis panel , auto Unknown Analyte Negati ve Not Available [facility] [address], [place], [address], 10/11/2024 08:54:23 10/12/19 25 10/11/2024 urina lysis panel , auto Unknown Analyte Negati ve Not Available [facility] [address], [place], [address], 10/11/2024 08:54:23 Result Notes None recorded. Problems No Known Problems Procedures Surgical History Date Name Laterality Status Provider Name and Address Organization Details Recorded Time procedure on knee completed Martha Gallagher [facility] 06/28/2021 11:45:48 tonsillectomy completed Martha CONTRERAS [facility] 06/28/2021 11:46:15 nasal septoplasty completed Martha Gallagher [facility] 06/28/2021 11:46:26 Back Surgery completed Bridger Tom [facility] 12/06/2022 14:03:00 procedure on nasal septum completed Bridger Longoriat [place] - [facility] 12/06/2022 14:03:21 Stent completed Murelene Negro [place] - [facility] 12/06/2022 14:03:29 Imaging Results None recorded. [...] Updated DateTime 10/09/2023 172.72 cm 32.2 kg/m2 14909.58 g Rehana Josue [facility] 10/09/2023 15:36:10 Date Recorded Body height Body mass index (BMI) Body weight Provider Name and Address Organization Details Last Updated DateTime 10/11/2024 175.26 cm 31.7 kg/m2 93556.36 g Hyacinth Hernandez [facility] 10/11/2024 09:17:14 Date Recorded Body height Body mass index (BMI) Body weight Provider Name and Address Organization Details Last Updated DateTime 04/17/2024 175.26 cm 31.3 kg/m2 57333.58 g Rehana Joselo [facility] 04/17/2024 13:35:22 Social History Question Answer Notes LastModified by Organizat ion Details LastModified Time Tobacco Smoking Status [facility]/28/2021 11:44:59 What Was The Date Of Your Most Recent Tobacco Screening? 10/11/2024 [email or web address] Information not available 10/11/2024 What Is Your Relationship Status? Information not available 12/06/2022 Has Tobacco Cessation Counseling Been Provided? No Information not available 06/28/2021 How Many Years Have You Smoked Tobacco? 40 Information not available 06/28/2021 Sex: Male Functional Status Question Answer Note LastModified by Organizat ion Details LastModified Time Do you use any illicit or recreational drugs? No Information not available 06/28/2021 Do you or have you ever used any other forms of tobacco or nicotine? No Information not available 06/28/2021 What is your level of alcohol consumption? Moderate 1 bourbon a day Information not available 12/06/2022 Mental Status None recorded. Family History Relationship [...] SNOMED-CT Code Diagnosis ICD10 Code Diagnosis Note [id number] SHANT RICE PA-C [facility] [address] [place] [address] 06/28/2021 10:20:53 06/29/2021 08:41:35 Lumbar radiculopathy 268240558 M54.16 [id number] SHANT IRCE PA-C [facility] [address] [place] [address] 07/05/2021 08:50:31 07/05/2021 10:49:09 Lumbar radiculopathy 831775338 M54.16 [id number] TAMI THOMAS MD SURGERY SCHEDULE [address] [place] [address] 08/13/2021 10:45:40 08/18/2021 12:38:32 [id number] TAMI THOMAS MD [facility] [address] [place] [address] 09/20/2021 09:45:38 09/20/2021 14:52:49 Postoperative care [id number] Z48.89 [id number] SHANT RICE PA-C [facility] [address] [place] [address] 11/15/2021 09:31:36 11/16/2021 16:23:52 Lumbar radiculopathy 991646811 M54.16 [id number] CARMELINA BLACK MD [facility] [address] [place] [address] 12/06/2022 13:09:16 12/06/2022 14:49:21 Benign prostatic hyperplasia with outflow obstruction 449447510 N40.1 Follow-up 2 months [id number] CARMELINA BLACK MD [facility] [address] [place] [address] 02/10/2023 10:11:35 02/10/2023 11:34:58 Benign prostatic hyperplasia with outflow obstruction 782545967 N40.1 Follow-up 6 months continue tamsulosin twice daily [id number] CARMELINA BLACK MD [facility] [address] [place] [address] 10/09/2023 15:21:34 10/09/2023 16:21:28 Benign prostatic hyperplasia with outflow obstruction 258219791 N40.1 Follow-up 6 months continue tamsulosin twice daily Primary er ectile dysfunction 461971289 N52.9 [id number] CARMELINA BLACK MD [facility] [address] [place] [address] 04/17/2024 13:11:16 04/17/2024 13:53:30 Benign prostatic hyperplasia with outflow obstruction 453963381 N40.1 Follow-up 6 months continue tamsulosin twice daily Primary er ectile dysfunction 317003441 N52.9 Plan as above follow-up 6 months [id number] CARMELINA BLACK MD [facility] [address] [place] [address] 10/11/2024 08:40:07 10/11/2024 09:27:15 Benign prostatic hyperplasia with outflow obstruction 078064900 N40.1 Follow-up 6 months continue tamsulosin twice daily Primary er ectile dysfunction 606039296 N52.9 Plan as above follow-up 12 months, if he decides to proceed with the anterior urethral gel he will contact us and we will send a prescripti on to [facility] pharmacy Health Concerns Section Related Observation LastModified by Organization Detai ls LastModified Time None Recorded Concern Status LastModified by Organization Details LastModified Time None Recorded Advance Directives Directive None Recorded Payers Insurance Date Sequence Insurance Name Policy Number Policy Nolen Covered Member ID Nolen Member ID Guarantor Name 10/08/2024 1 [place] ANH RENNER OF [facility] ACCESS (MEDICARE REPLACEMENT REGIONAL PPO) [id number] Ronn Yang [id number] Ronn Yang 10/09/2023 1 [employer] (MEDICARE REPLACEMENT/AD VANTAGE - PPO) [id number] Ronn Yang [id number] Ronn Yang Notes Date Note Type Note [...] we will observe him. CARMELINA BLACK MD [facility] [place], [address], [facility] 02/21/2023 12:27:36 10/09/2023 text/html Patient [...] him out on 0.1 mL of Trimix. [place], [address], [facility] 10/09/2023 16:23:07 04/17/2024 text/html Patient [...] in September which was 2.3 and [place], [address], [facility] 04/17/2024 14:09:01 10/11/2024 text/html Patient [...] last year. Typically has nocturia x 0-1[place], [address], [facility] 10/11/2024 09:29:23
--- OUTSIDE RECORDS SUMMARY | 2024-12-24 10:47 | XMS_ITS | Data Portability ---
Author Organization [facility] ADMIN Address [address] [place] [address] Assessment No assessment recorded. Plan of Treatment [...] audio gram No observ ation record ed. [email or web address] Not Available 2023 10:06:01 Result Notes None recorded. Problems Name Problem SNOMED Code Status Onset Date Resolution Date Notes Provider Name and Address Organization Details Recorded Time Sensorineural hearing loss 42190912 Active 2023 REESE MIGUEL, AUD [address] [facility], [place], [address] , [facility] [place] 10:25:28 Problem Notes None recorded. Medical Equipment None Reported. [...] SNOMED-CT Code Diagnosis ICD10 Code Diagnosis Note [id number] ANNABELLE QUINTERO ENT [facility] [address] [facility], [facility] [place] [address] 08/29/2023 09:45:11 08/29/2023 10:15:37 Sensorineural hearing loss 71714438 H90.3 [id number] ANNABELLE QUINTERO ENT [facility] [address] [facility], [facility] [place] [address] 09/26/2023 10:18:36 09/26/2023 10:38:12 Sensorineural hearing loss 19404927 H90.3 Health Concerns Section Related Observation LastModified by Organization Detai ls LastModified Time None Recorded Concern Status LastModified by Organization Details LastModified Time None Recorded Advance Directives Directive None Recorded Payers Insurance Date Sequence Insurance Name Policy Number Policy Nolen Covered Member ID Nolen Member ID Guarantor Name 12/27/2023 1 [place] ANH RENNER OF [facility] MEDIBLUE ACCESS (MEDICARE REPLACEMENT REGIONAL PPO) [id number] Heydi Yang [id number] Heydi Yang 12/27/2023 [employer] Heydi YANG, HEYDI YANG, HEYDI Yang 08/29/2023 1 [employer] (MEDICARE REPLACEMENT/AD VANTAGE - PPO) Heydi Yang [id number] Heydi Yang Notes Date Note Type Note Provider Name and Address Organization Details Recorded Time 08/29/2023 text/html Patient was seen today for a hearing aid service. Cleaned and adjusted hearing aids this date. ANNABELLE QUINTERO [address] , [place], [address], [facility] [place] 08/29/2023 10:25:46 09/26/2023 text/html Mr. Yang was seen today for a hearing aid fitting via [facility]. ANNABELLE QUINTERO [address], [place], [address], [facility] [place] 09/26/2023 11:13:31
== END 2024-12-20 23:59 | disposition home or self-care (01) ==
LOC: LAB.DROPOF 12-24 10:46
PROVIDERS: PCP Family Medicine; Visit Provider Family Medicine
DX: N40.0 Benign prostatic hyperplasia without lower urinary tract symptoms (principal); I10 Essential (primary) hypertension; E78.5 Hyperlipidemia, unspecified; R73.03 Prediabetes; Z12.5 Encounter for screening for malignant neoplasm of prostate; Z13.1 Encounter for screening for diabetes mellitus; Z13.21 Encounter for screening for nutritional disorder
CPT/HCPCS: 80053; 80061; 82306; 83036; 84443; 85025; G0103

== ENCOUNTER 2025-05-19 10:38 | Outpatient (CLI) | payer MEDICARE, SELFPAY ==
[2025-05-19 15:24] LABS: Albumin Level 4.3 g/dl (3.5-5.0); Chloride 98 mmol/L (98-107); Potassium 4.5 mmoL/L (3.5-5.1); Sodium 139 mmol/L (136-145)
[2025-05-19 15:27] LABS: Alanine Aminotransferase 17 U/L (12-78); Albumin/Globulin Ratio 1.4 (1.1-1.8); Alkaline Phosphatase 77 U/L (38-126); Anion Gap 13.5 mEq/L (5-15); Aspartate Amino Transferase 26 U/L (17-59); Bilirubin,Total 0.4 mg/dl (0.2-1.3); Blood Urea Nitrogen 19 mg/dl (9-20); Calcium 9.3 mg/dl (8.4-10.2); Carbon Dioxide 32 mmol/L (22.0-30.0); Cholesterol 164 mg/dl (140-200); Creatinine,Serum 1.40 mg/dl (0.66-1.25); Estimated Glomerular Filt Rate 49 ml/min (>60); GFR (African American) 60 ML/MIN (>60); Globulin 3.0 g/dL (1.3-3.2); Glucose 111 mg/dl (74-100); HDL Cholesterol 67 mg/dl (40-60); Total Protein,Serum 7.3 g/dl (6.3-8.2); Triglycerides 167 mg/dl (30-150)
[2025-05-19 16:12] LABS: Hemoglobin A1C 5.8 % (4.0-6.0)
--- OUTSIDE RECORDS SUMMARY | 2025-05-21 10:55 | XMS_ITS | Referral Summary ---
Author Organization [employer] ([place], [place], [place], [place]) Address [address] [place] [address] Care Team Providers Care Aerial Lineman Name Role Phone Unavailable Primary Care Provider Unavailabl e Social History Tobacco Use Types Packs/Day Years Used Date Smoking Tobacco: Never Assessed Sex and Gender Information Value Date Recorded Sex Assigned at Male 01/25/2022 11:23 AM CDT Legal Sex Male 11:23 AM CDT Gender Identity Male 01/25/2022 11:23 AM CDT Sexual Orientation Not on file Plan of Treatment Not on file
--- OUTSIDE RECORDS SUMMARY | 2025-05-21 10:55 | XMS_ITS | Clinical Summary ---
Author Organization [employer] ([place], [place], [place], [place]) Address [address] [place] [address] Care Team Providers Care Hydrostatic Tubing Tester Name Role Phone Unavailable Primary Care Provider [...]
--- OUTSIDE RECORDS SUMMARY | 2025-05-21 10:55 | XMS_ITS | Data Portability ---
Author Organization [facility] ADMIN Address [address] [place] [address] Assessment No assessment recorded. Plan of Treatment [...] audio gram No observ ation record ed. [email or web address] Not Available 2023 10:06:01 Result Notes None recorded. Problems Name Problem SNOMED Code Status Onset Date Resolution Date Notes Provider Name and Address Organization Details Recorded Time Sensorineural hearing loss 22451621 Active 2023 REESE MIGUEL, AUD [address] [facility], [place], [address] , [facility] [place] 10:25:28 Problem Notes None recorded. Medical Equipment [...] Diagnosis SNOMED-CT Code Diagnosis ICD10 Code Diagnosis IMO Codes Diagnosis Note [id number] ANNABELLE QUINTERO ENT [facility] [address] [facility], [facility] [place] [address] 08/29/2023 09:45:11 08/29/2023 10:15:37 Sensorineural hearing loss 74331373 H90.3 [id number] ANNABELLE QUINTERO ENT Associate [facility] of [facility] [facility], [facility] [place] [address] 09/26/2023 10:18:36 09/26/2023 10:38:12 Sensorineural hearing loss 65880342 H90.3 Health Concerns Section Related Observation LastModified by Organization Detai ls LastModified Time None Recorded Concern Status LastModified by Organization Details LastModified Time None Recorded Advance Directives Directive None Recorded Payers Insurance Date Sequence Insurance Name Policy Number Policy Nolen Covered Member ID Nolen Member ID Guarantor Name 12/27/2023 1 [place] ANH RENNER OF [facility] ACCESS (MEDICARE REPLACEMENT REGIONAL PPO) [id number] Heydi Yang [id number] Heydi Yang 12/27/2023 [employer] Heydi YANG, HEYDI YANG, HEYDI Yang 08/29/2023 1 [employer] (MEDICARE REPLACEMENT/AD VANTAGE - PPO) Heydi Yang [id number] Heydi Yang Notes Date Note Type Note Provider Name and Address Organization Details Recorded Time 08/29/2023 text/html Patient was seen today for a hearing aid service. Cleaned and adjusted hearing aids this date. ANNABELLE QUINTERO [address] , [place], [address], [facility] [place] 08/29/2023 10:25:46 09/26/2023 text/html Mr. Yang was seen today for a hearing aid fitting via [facility]. ANNABELLE QUINTERO [address] , [place], [address], [facility] [place] 09/26/2023 11:13:31
--- OUTSIDE RECORDS SUMMARY | 2025-05-21 10:55 | XMS_ITS | Data Portability ---
Author Organization DIANE - Astrid joya, HEYDIS HERTEL CLOSED Address [address] [place] [address] Care Team Providers Care Direct Mail Coordinator Name Role Phone JOHN FU Referring Provider [phone] JUSTINE MCGUIRE Primary Care Provider [phone] Assessment Encounter Date Assessment Date Assessment LastModified by Organization Details LastModified Time 01/22/2025 01/22/2025 Assessment: 74-year-old male with benign prostatic hyperplasia presents with hematuria, likely related to prostate enlargement given recent negative cystoscopy. Physical activity may aggravate the condition due to prostate position and friable vessels. Significant smoking history does increase the risk factor profile of urothelial malignancy development. Plan: - Monitor hematuria and send urine for further testing to investigate etiology behind hematuria (cytology and culture). No immediate need for repeat cystoscopy, but if the hematuria is a recurrent issue then CT hematuria protocol and repeat cystoscopy is recommended. Plan to discuss with Dr. Black for a second opinion given he is established with Dr. Black. - Will plan to follow-up in 6 weeks, sooner if needed. [email or web address] Not available 01/22/2025 13:06:06 02/05/2025 02/05/2025 PREOPERATIVE DIAGNOSIS: Hematuria. POSTOPERATIVE DIAGNOSIS: Hematuria secondary to BPH. PROCEDURE: Flexible local cystoscopy. ANESTHESIA: Intraurethral Xylocaine jelly. SURGEON: Azam Black MD BRIEF HISTORY: The patient recently had an episode of gross, painless hematuria. He saw his PCP and had a CT scan, which was unremarkable. He has had no further bleeding and presents today for cystoscopy as he does have a smoking history. OPERATIVE NOTE: After satisfactory position and supine orientation, genitalia was prepped and draped in normal fashion. A flexible cystoscope was then introduced after instillation of Xylocaine jelly. The urethra was unremarkable. His prostatic urethra showed trilobar hypertrophy. The hypertrophy was very large, somewhat pedunculated median lobe. Upon entering the bladder, the bladder was mildly trabeculated. The entire bladder mucosa was inspected. There was no evidence of bladder tumor. The scope was retroflexed at the bladder neck, and a huge amount of median lobe extending into the bladder neck. There was vascular prominence on the median lobe, particularly. The scope was withdrawn. He has moderate obstructive symptoms. At this point, there was no major concern regarding his hematuria. He certainly may develop more problematic obstructive symptoms, but for now, we will observe this. [email or web address] Not available 02/05/2025 13:30:45 Plan of Treatment Reminders Order Date Submit Date Provider Last Modified By Organization Details Last Modified Time Details Appointments RECHECK 2024 09:30A Dakotah BLACK MD Not available Not available Not available RECHECK 2025 09:00A Dakotah BLACK MD Not available Not available Not available Lab cytology, non-gynec ological, unspecifi ed specimen [address] [facility], [address] [place] [address], [id number], 01/24/2025 10:43:42 culture, urine [address] [facility], [address] [address] [place], [address], 01/23/2025 10:45:16 urinalysi s panel, auto 2024 025 [email or web address] [id number] [facility], [address], [place], [address], 01/23/2025 09:44:44 urinalysi s panel, auto 2024 025 [email or web address] [facility], [address], [place], [address], 10/11/2024 09:28:29 urinalysi s panel, auto 2023 024 [facility], [address], [address], [place], [address], 04/17/2024 14:08:25 urinalysi s panel, auto 2023 024 [address] [facility], [address], [address], [place], [address], 04/19/2025 21:29:43 Referral None recorded. Procedures None recorded. Surgeries None recorded. Imaging None recorded. Medication Orders tamsulosi n 0.4 mg capsule 2024 025 [facility] 591, [address], [address], 10/11/2024 09:28:38 Patient TargetsNo targets recorded. Patient InstructionsNo instructions recorded. Reason for Referral None Reported. Results Created Date Observation Date Name Description Value Unit Range Abnormal Flag Note LastModifiedBy Organization Detail LastModifiedTime 04/12/2004/12/2024 urina lysis panel , auto Unknown Analyte Clean Catch Not Available [facility] [address], [place], [address], 04/12/2024 10:47:15 04/12/20 24 04/12/2024 urina lysis panel , auto Unknown Analyte Yellow Not Available [facility] [address], [place], [address], 04/12/2024 10:47:15 04/12/20 24 04/12/2024 urina lysis panel , auto Unknown Analyte Clear Not Available [facility] [address], [place], [address], 04/12/2024 10:47:15 04/12/20 24 04/12/2024 urina lysis panel , auto Unknown Analyte 1.005 Not Available [facility] [address], [place], [address], 04/12/2024 10:47:15 04/12/20 24 04/12/2024 urina lysis panel , auto Unknown Analyte 1.003- 1.035 Not Available [facility] [address], [place], [address], 04/12/2024 10:47:15 04/12/20 24 04/12/2024 urina lysis panel , auto Unknown Analyte 5.0 Not Available [facility] [address], [place], [address], 04/12/2024 10:47:15 04/12/20 24 04/12/2024 urina lysis panel , auto Unknown Analyte 5.0-8. 0 Not Available [facility] [address], [place], [address], 04/12/2024 10:47:15 04/12/20 24 04/12/2024 urina lysis panel , auto Unknown Analyte Negati ve Not Available [facility] [address], [place], [address], 04/12/2024 10:47:15 04/12/20 24 04/12/2024 urina lysis panel , auto Unknown Analyte Negati ve Not Available [facility] [address], [place], [address], 04/12/2024 10:47:15 04/12/20 24 04/12/2024 urina lysis panel , auto Unknown Analyte Negati ve Not Available [facility] [address], [place], [address], 04/12/2024 10:47:15 04/12/20 24 04/12/2024 urina lysis panel , auto Unknown Analyte Negati ve Not Available [facility] [address], [place], [address], 04/12/2024 10:47:15 04/12/20 24 04/12/2024 urina lysis panel , auto Unknown Analyte Negati ve Not Available [facility] [address], [place], [address], 04/12/2024 10:47:15 04/12/20 24 04/12/2024 urina lysis panel , auto Unknown Analyte Negati ve Not Available [facility] [address], [place], [address], 04/12/2024 10:47:15 04/12/20 24 04/12/2024 urina lysis panel , auto Unknown Analyte Normal Not Available [facility] [address], [place], [address], 04/12/2024 10:47:15 04/12/20 24 04/12/2024 urina lysis panel , auto Unknown Analyte Normal Not Available [facility] [address], [place], [address], 04/12/2024 10:47:15 04/12/20 24 04/12/2024 urina lysis panel , auto Unknown Analyte Negati ve Not Available [facility] [address], [place], [address], 04/12/2024 10:47:15 04/12/2004/12/2024 urina lysis panel , auto Unknown Analyte Negati ve Not Available [facility] [address], [place], [address], 04/12/2024 10:47:15 04/12/20 24 04/12/2024 urina lysis panel , auto Unknown Analyte Normal Not Available [facility] [address], [place], [address], 04/12/2024 10:47:15 04/12/2004/12/2024 urina lysis panel , auto Unknown Analyte Normal 1 mg/dl Not Available [facility] [address], [place], [address], 04/12/2024 10:47:15 04/12/2004/12/2024 urina lysis panel , auto Unknown Analyte Negati ve Not Available [facility] [address], [place], [address], 04/12/2024 10:47:15 04/12/20 24 04/12/2024 urina lysis panel , auto Unknown Analyte Negati ve Not Available [facility] [address], [place], [address], 04/12/2024 10:47:15 04/12/20 24 04/12/2024 urina lysis panel , auto Unknown Analyte Negati ve Not Available [facility] [address], [place], [address], 04/12/2024 10:47:15 04/12/20 24 04/12/2024 urina lysis panel , auto Unknown Analyte Negati ve Not Available [facility] [address], [place], [address], 04/12/2024 10:47:15 04/17/20 24 04/17/2024 urina lysis panel , auto Unknown Analyte Clean Catch Not Available [facility] [address], [place], [address], 04/17/2024 13:36:34 04/17/20 24 04/17/2024 urina lysis panel , auto Unknown Analyte Yellow Not Available [facility] [address], [place], [address], 04/17/2024 13:36:34 04/17/20 24 04/17/2024 urina lysis panel , auto Unknown Analyte Clear Not Available [facility] [address], [place], [address], 04/17/2024 13:36:34 04/17/20 24 04/17/2024 urina lysis panel , auto Unknown Analyte 1.005 Not Available [facility] [address], [place], [address], 04/17/2024 13:36:34 04/17/20 24 04/17/2024 urina lysis panel , auto Unknown Analyte 1.003- 1.035 Not Available [facility] [address], [place], [address], 04/17/2024 13:36:34 04/17/20 24 04/17/2024 urina lysis panel , auto Unknown Analyte 5.0 Not Available [facility] [address], [place], [address], 04/17/2024 13:36:34 04/17/20 24 04/17/2024 urina lysis panel , auto Unknown Analyte 5.0-8. 0 Not Available [facility] [address], [place], [address], 04/17/2024 13:36:34 04/17/20 24 04/17/2024 urina lysis panel , auto Unknown Analyte Negati ve Not Available [facility] [address], [place], [address], 04/17/2024 13:36:34 04/17/20 24 04/17/2024 urina lysis panel , auto Unknown Analyte Negati ve Not Available [facility] [address], [place], [address], 04/17/2024 13:36:34 04/17/20 24 04/17/2024 urina lysis panel , auto Unknown Analyte Negati ve Not Available [facility] [address], [place], [address], 04/17/2024 13:36:34 04/17/20 24 04/17/2024 urina lysis panel , auto Unknown Analyte Negati ve Not Available [facility] [address], [place], [address], 04/17/2024 13:36:34 04/17/20 24 04/17/2024 urina lysis panel , auto Unknown Analyte Negati ve Not Available [facility] [address], [place], [address], 04/17/2024 13:36:34 04/17/20 24 04/17/2024 urina lysis panel , auto Unknown Analyte Negati ve Not Available [facility] [address], [place], [address], 04/17/2024 13:36:34 04/17/20 24 04/17/2024 urina lysis panel , auto Unknown Analyte Normal Not Available [facility] [address], [place], [address], 04/17/2024 13:36:34 04/17/20 24 04/17/2024 urina lysis panel , auto Unknown Analyte Normal Not Available [facility] [address], [place], [address], 04/17/2024 13:36:34 04/17/20 24 04/17/2024 urina lysis panel , auto Unknown Analyte Negati ve Not Available [facility] [address], [place], [address], 04/17/2024 13:36:34 04/17/20 24 04/17/2024 urina lysis panel , auto Unknown Analyte Negati ve Not Available [facility] [address], [place], [address], 04/17/2024 13:36:34 04/17/20 24 04/17/2024 urina lysis panel , auto Unknown Analyte Normal Not Available [facility] [address], [place], [address], 04/17/2024 13:36:34 04/17/20 24 04/17/2024 urina lysis panel , auto Unknown Analyte Normal 1 mg/dl Not Available [facility] [address], [place], [address], 04/17/2024 13:36:34 04/17/20 24 04/17/2024 urina lysis panel , auto Unknown Analyte Negati ve Not Available [facility] [address], [place], [address], 04/17/2024 13:36:34 04/17/20 24 04/17/2024 urina lysis panel , auto Unknown Analyte Negati ve Not Available [facility] [address], [place], [address], 04/17/2024 13:36:34 04/17/20 24 04/17/2024 urina lysis panel , auto Unknown Analyte Negati ve Not Available [facility] [address], [place], [address], 04/17/2024 13:36:34 04/17/20 24 04/17/2024 urina lysis panel , auto Unknown Analyte Negati ve Not Available [facility] [address], [place], [address], 04/17/2024 13:36:34 10/12/19 25 10/11/2024 urina lysis panel , auto Unknown Analyte Clean Catch Not Available [facility] [address], [place], [address], 10/11/2024 08:54:23 10/12/19 25 10/11/2024 urina lysis panel , auto Unknown Analyte Yellow Not Available [facility] [address], [place], [address], 10/11/2024 08:54:23 10/12/19 25 10/11/2024 urina lysis panel , auto Unknown Analyte Clear Not Available [facility] [address], [place], [address], 10/11/2024 08:54:23 10/12/19 25 10/11/2024 urina lysis panel , auto Unknown Analyte 1.010 Not Available [facility] [address], [place], [address], 10/11/2024 08:54:23 10/12/19 25 10/11/2024 urina lysis panel , auto Unknown Analyte 1.003 - 1.030 Not Available [facility] [address], [place], [address], 10/11/2024 08:54:23 10/12/19 25 10/11/2024 urina lysis panel , auto Unknown Analyte 6.0 Not Available [facility] [address], [place], [address], 10/11/2024 08:54:23 10/12/19 25 10/11/2024 urina lysis panel , auto Unknown Analyte 5.0 - 8.0 Not Available [facility] [address], [place], [address], 10/11/2024 08:54:23 10/12/19 25 10/11/2024 urina lysis panel , auto Unknown Analyte Negati ve Not Available [facility] [address], [place], [address], 10/11/2024 08:54:23 10/12/19 25 10/11/2024 urina lysis panel , auto Unknown Analyte Negati ve Not Available [facility] [address], [place], [address], 10/11/2024 08:54:23 10/12/19 25 10/11/2024 urina lysis panel , auto Unknown Analyte Negati ve Not Available [facility] [address], [place], [address], 10/11/2024 08:54:23 10/12/19 25 10/11/2024 urina lysis panel , auto Unknown Analyte Negati ve Not Available [facility] [address], [place], [address], 10/11/2024 08:54:23 10/12/19 25 10/11/2024 urina lysis panel , auto Unknown Analyte Negati ve Not Available [facility] [address], [place], [address], 10/11/2024 08:54:23 10/12/19 25 10/11/2024 urina lysis panel , auto Unknown Analyte Negati ve Not Available [facility] [address], [place], [address], 10/11/2024 08:54:23 10/12/19 25 10/11/2024 urina lysis panel , auto Unknown Analyte Normal Not Available [facility] [address], [place], [address], 10/11/2024 08:54:23 10/12/19 25 10/11/2024 urina lysis panel , auto Unknown Analyte Normal Not Available [facility] [address], [place], [address], 10/11/2024 08:54:23 10/12/19 25 10/11/2024 urina lysis panel , auto Unknown Analyte Negati ve Not Available [facility] [address], [place], [address], 10/11/2024 08:54:23 10/12/19 25 10/11/2024 urina lysis panel , auto Unknown Analyte Negati ve Not Available [facility] [address], [place], [address], 10/11/2024 08:54:23 10/12/19 25 10/11/2024 urina lysis panel , auto Unknown Analyte Normal Not Available [facility] [address], [place], [address], 10/11/2024 08:54:23 10/12/19 25 10/11/2024 urina lysis panel , auto Unknown Analyte Normal Not Available [facility] [address], [place], [address], 10/11/2024 08:54:23 10/12/1910/11/2024 urina lysis panel , auto Unknown Analyte Negati ve Not Available [facility] [address], [place], [address], 10/11/2024 08:54:23 10/12/19 25 10/11/2024 urina lysis panel , auto Unknown Analyte Negati ve Not Available [facility] [address], [place], [address], 10/11/2024 08:54:23 10/12/19 25 10/11/2024 urina lysis panel , auto Unknown Analyte Negati ve Not Available [facility] [address], [place], [address], 10/11/2024 08:54:23 10/12/1910/11/2024 urina lysis panel , auto Unknown Analyte Negati ve Not Available [facility] [address], [place], [address], 10/11/2024 08:54:23 01/23/20 25 01/22/2025 URINE CULTU RE enterococcus faecalis Organi sm: Entero coccus faecal is Not Available [facility] [address] [place], [address], 01/24/2025 11:28:21 01/23/20 25 01/24/2025 URINE CULTU RE urine culture abnormal ISOLA TE #1 COLON Y COUNT : < 10,00 0 CFU/M L Proba ble Strep tococ cus sp.; ID and sensi tivit y in progr ess. See [place]anga te Resul t(s) Below Enter ococc us faeca lis Not Available [facility] [address] [place], [address], 01/24/2025 11:28:21 01/23/20 25 01/24/2025 URINE CULTU RE ampicillin <=2 ug/mL susceptib le Not Available [facility] [address] [place], [address], 01/24/2025 11:28:21 01/23/20 25 01/24/2025 URINE CULTU RE ciprofloxaci n <=1 ug/mL susceptib le Not Available [facility] [address] [place], [address], 01/24/2025 11:28:21 01/23/20 25 01/24/2025 URINE CULTU RE levofloxacin <=1 ug/mL susceptib le Not Available [facility] [address] [place], [address], 01/24/2025 11:28:21 01/23/20 25 01/24/2025 URINE CULTU RE nitrofuranto in <=32 ug/mL susceptib le Not Available [facility] [address] [place], [address], 01/24/2025 11:28:21 01/23/20 25 01/24/2025 URINE CULTU RE penicillin 2 ug/mL susceptib le Not Available [facility] [address] [place], [address], 01/24/2025 11:28:21 01/23/20 25 01/24/2025 URINE CULTU RE rifampin 2 ug/mL intermedi ate Not Available [facility] [employer] [place], [address], 01/24/2025 11:28:21 01/23/20 25 01/24/2025 URINE CULTU RE tetracycline >8 ug/mL resistant Not Available [facility] [address] [place], [address], 01/24/2025 11:28:21 01/23/20 25 01/24/2025 URINE CULTU RE vancomycin 1 ug/mL susceptib le Not Available [facility] [address] [place], [address], 01/24/2025 11:28:21 01/23/20 25 01/22/2025 CYTOL OGY cytology SEE BELOW normal Depar tment of Patho logy Medic al Cytol ogy Repor t NAME: HEYDI YANG PATH. :NC-2 [id number] Copie s to: SOURC E OF SPECI MEN: URINE , CLEAN CATCH Volum e: 35 mL Color : Straw Fixed : N Blood y: N Clott ed: N Clear : Y Other : SPECI MEN RECEI LAWRENCE UNFIX ED - ADDED CYTOL YT CLINI LIBBY INFOR MATIO N: R31.0 Diagn osis: Urine , clean catch , ThinP rep: No evide nce of rachel noel . The speci men is parti albert URIARTE-Cha FARRELL MD La d Out Date: 01/24 , 10:43 Page 1 of 1 Not Available [facility] [address] [place], [address], 01/24/2025 10:43:42 01/23/20 25 01/22/2025 urina lysis panel , auto Unknown Analyte Clean Catch Not Available [facility] [address] [place] [address] [address], [place], [address], 01/22/2025 11:39:05 01/23/20 25 01/22/2025 urina lysis panel , auto Unknown Analyte Yellow Not Available [facility] [address], [place], [address], 01/22/2025 11:39:05 01/23/20 25 01/22/2025 urina lysis panel , auto Unknown Analyte Clear Not Available [facility] [address], [place], [address], 01/22/2025 11:39:05 01/23/20 25 01/22/2025 urina lysis panel , auto Unknown Analyte 1.015 Not Available [facility] [address], [place], [address], 01/22/2025 11:39:05 01/23/20 25 01/22/2025 urina lysis panel , auto Unknown Analyte 1.003 - 1.030 Not Available [facility] [address], [place], [address], 01/22/2025 11:39:05 01/23/20 25 01/22/2025 urina lysis panel , auto Unknown Analyte 5.0 Not Available [facility] [address], [place], [address], 01/22/2025 11:39:05 01/23/20 25 01/22/2025 urina lysis panel , auto Unknown Analyte 5.0 - 8.0 Not Available [facility] [address], [place], [address], 01/22/2025 11:39:05 01/23/20 25 01/22/2025 urina lysis panel , auto Unknown Analyte Negati ve Not Available [facility] [address], [place], [address], 01/22/2025 11:39:05 01/23/20 25 01/22/2025 urina lysis panel , auto Unknown Analyte Negati ve Not Available [facility] [address], [place], [address], 01/22/2025 11:39:05 01/23/20 25 01/22/2025 urina lysis panel , auto Unknown Analyte Negati ve Not Available [facility] [address], [place], [address], 01/22/2025 11:39:05 01/23/20 25 01/22/2025 urina lysis panel , auto Unknown Analyte Negati ve Not Available [facility] [address], [place], [address], 01/22/2025 11:39:05 01/23/20 25 01/22/2025 urina lysis panel , auto Unknown Analyte Negati ve Not Available [facility] [address], [place], [address], 01/22/2025 11:39:05 01/23/20 25 01/22/2025 urina lysis panel , auto Unknown Analyte Negati ve Not Available [facility] [address], [place], [address], 01/22/2025 11:39:05 01/23/20 25 01/22/2025 urina lysis panel , auto Unknown Analyte Normal Not Available [facility] [address], [place], [address], 01/22/2025 11:39:05 01/23/20 25 01/22/2025 urina lysis panel , auto Unknown Analyte Normal Not Available [facility] [address], [place], [address], 01/22/2025 11:39:05 01/23/2001/22/2025 urina lysis panel , auto Unknown Analyte Negati ve Not Available [facility] [address], [place], [address], 01/22/2025 11:39:05 01/23/20 25 01/22/2025 urina lysis panel , auto Unknown Analyte Negati ve Not Available [facility] [address], [place], [address], 01/22/2025 11:39:05 01/23/20 25 01/22/2025 urina lysis panel , auto Unknown Analyte Normal Not Available [facility] [address], [place], [address], 01/22/2025 11:39:05 01/23/20 25 01/22/2025 urina lysis panel , auto Unknown Analyte Normal Not Available [facility] [address], [place], [address], 01/22/2025 11:39:05 01/23/20 25 01/22/2025 urina lysis panel , auto Unknown Analyte Negati ve Not Available [facility] [address], [place], [address], 01/22/2025 11:39:05 01/23/20 25 01/22/2025 urina lysis panel , auto Unknown Analyte Negati ve Not Available [facility] [address] [facility] [address], [place], [address], 01/22/2025 11:39:05 01/23/2001/22/2025 urina lysis panel , auto Unknown Analyte Negati ve Not Available [facility] [address], [place], [address], 01/22/2025 11:39:05 01/23/20 25 01/22/2025 urina lysis panel , auto Unknown Analyte Negati ve Not Available [facility] [address] [place] [address] [address], [place], [address], 01/22/2025 11:39:05 Result Notes None recorded. Problems No Known Problems Procedures Surgical History Date Name Laterality Status Provider Name and Address Organization Details Recorded Time procedure on knee completed Martha Keegan [facility] 06/28/2021 11:45:48 tonsillectomy completed Martha Keegan [place] [facility] 06/28/2021 11:46:15 nasal septoplasty completed Martha Keegan [facility] 06/28/2021 11:46:26 Back Surgery completed Murelene Negro [place] [facility] 12/06/2022 14:03:00 procedure on nasal septum completed Murelene Negro [place] [facility] 12/06/2022 14:03:21 Stent completed Murelene Negro [facility] 12/06/2022 14:03:29 Imaging Results None recorded. Procedure [...] TAKE 1 TABLET BY MOUTH ONCE DAILY 01/22 completed Not Available Not Available Not Available clopidogr el 75 mg tablet TAKE [...] BY MOUTH ONCE DAILY FOR PRE DIABETES 01/22 completed Not Available Not Available Not Available Diovan HCT 160 mg-12.5 mg tablet [...] Not Available Not Available No t Available nitrofura ntoin monohydra te/macroc rystals 100 mg capsule Take 1 capsule every 12 hours by oral route for 10 days, for UTI. 02/10 completed Not Available Not Available Not Available Vytorin 10 mg-40 mg tablet 12/06 completed Medicati on Descript ion: ezetimib e-simvas tatin; Route:or al; refills: 0 Not Available Not Available Not Available omeprazol e 12/06 completed Not Available Not Available Not Available tramadol active Not Available Not Avai lable Not Available simvastat in 12/06 completed Not [...] completed Not Available Not Available Not Available Farxiga active Not Available Not Avail able Not Available Ozempic 0.25 mg or 0.5 [...] Updated DateTime 10/11/2024 175.26 cm 31.7 kg/m2 28389.36 g Hyacnith Hernandez [facility] 10/11/2024 09:17:14 Date Recorded Body height Body mass index (BMI) Body weight Provider Name and Address Organization Details Last Updated DateTime 01/22/2025 175.26 cm 31.3 kg/m2 85357.58 g Nayana Ordonez [facility] 01/22/2025 11:18:09 Date Recorded Body height Body mass index (BMI) Body weight Provider Name and Address Organization Details Last Updated DateTime 04/17/2024 175.26 cm 31.3 kg/m2 86336.58 g Rehana Josue [facility] 04/17/2024 13:35:22 Social History Question Answer Notes LastModified by Organizat ion Details LastModified Time Tobacco Smoking Status Former Smoker Martha dwyer, [facility] 06/28/2021 11:44:59 What Was The Date Of Your Most Recent Tobacco Screening? 10/11/2024 [email or web address] Information not available 10/11/2024 What Is Your [...] available 06/28 11:44:47 Unspecified Relation Diabetes mellitus [email or web address] Not available 2022 14:02:10 Medical History Condition Response Arthritis Y High Cholesterol Y Diabetes Y Hypertension Y Past Encounters Encounter ID Performer Location Encounter Start Date Encounter Closed Date Diagnosis/Indication Diagnosis SNOMED-CT Code Diagnosis ICD10 Code Diagnosis IMO Codes Diagnosis Note [id number] SHANT RICE PA-C [facility] [address] [place] [address] 06/28/2021 10:20:53 06/29/2021 08:41:35 Lumbar radiculopathy 079682075 M54.16 [id number] SHANT RICE PA-C [facility] [address] [place] [address] 07/05/2021 08:50:31 07/05/2021 10:49:09 Lumbar radiculopathy 883967762 M54.16 [id number] TAMI THOMAS MD SURGERY SCHEDULE [address] [place] [address] 08/13/2021 10:45:40 08/18/2021 12:38:32 [id number] TAMI THOMAS MD [facility] [address] [place] [address] 09/20/2021 09:45:38 09/20/2021 14:52:49 Postoperative care [id number] Z48.89 [id number] SHANT RICE PA-C [facility] [address] [place] [address] 11/15/2021 09:31:36 11/16/2021 16:23:52 Lumbar radiculopathy 550267056 M54.16 [id number] AZAM BLACK MD [facility] [address] [place] [address] 12/06/2022 13:09:16 12/06/2022 14:49:21 Benign prostatic hyperplasia with outflow obstruction [id number] N40.1 Follow-up 2 months [id number] AZAM BLACK MD [facility] [address] [place] [address] 02/10/2023 10:11:35 02/10/2023 11:34:58 Benign prostatic hyperplasia with outflow obstruction 662447913 N40.1 Follow-up 6 months continue tamsulosin twice daily [id number] AZAM BLACK MD [facility] [address] [place] [address] 10/09/2023 15:21:34 10/09/2023 16:21:28 Benign prostatic hyperplasia with outflow obstruction 871944944 N40.1 Follow-up 6 months continue tamsulosin twice daily Primary er ectile dysfunction 860816254 N52.9 [id number] AZAM BLACK MD [facility] [address] [place] [address] 04/12/2024 10:35:01 04/19/2025 21:29:51 Benign prostatic hyperplasia with outflow obstruction 377035038 N40.1 N13.8 [id number] Follow-up 6 months continue tamsulosin twice daily [id number] MD [facility] [address] [place] [address] 04/17/2024 13:11:16 04/17/2024 13:53:30 Benign prostatic hyperplasia with outflow obstruction 335846431 N40.1 Follow-up 6 months continue tamsulosin twice daily Primary er ectile dysfunction 006822897 N52.9 Plan as above follow-up 6 months [id number] MD [facility] [address] [place] [address] 10/11/2024 08:40:07 10/11/2024 09:27:15 Benign prostatic hyperplasia with outflow obstruction 065682211 N40.1 Follow-up 6 months continue tamsulosin twice daily Primary er ectile dysfunction 672251345 N52.9 Plan as above follow-up 12 months, if he decides to proceed with the anterior urethral gel he will contact us and we will send a prescripti on to [facility] pharmacy [id number] JARETH PRINCE [facility] [address] [place] [address] 01/22/2025 11:11:09 01/22/2025 11:41:01 Benign prostatic hyperplasia with outflow obstruction 731598127 N40.1 Abhi hematuria 86196631 5 R31.0 [id number] Ex-smoker 3965567 Z87.89 [id number] AZAM BLACK MD SURGERY SCHEDULE [address] [place] [address] 02/05/2025 06:28:27 02/05/2025 06:29:02 Health Concerns Section Related Observation LastModified by Organization Detai ls LastModified Time None Recorded Concern Status LastModified by Organization Details LastModified Time None Recorded Advance Directives Directive None Recorded Payers Insurance Date Sequence Insurance Name Policy Number Policy Nolen Covered Member ID Nolen Member ID Guarantor Name 02/13/2025 1 [place]MEDICARE REPLACEMENT REGIONAL PPO) [id number] Heydi Yang [id number] Heydi Yang 10/09/2023 1 [employer] (MEDICARE REPLACEMENT/AD VANTAGE - PPO) [id number] Heydi Yang [id number] Heydi Yang Notes Date Note Type Note Provider Name and Address Organization Details Recorded Time 04/17/2024 text/html Patient is here in follow-up [...] in September which was 2.3 and stable AZAM BLACK MD [address] [place] [address], [phone], [facility] 04/17/2024 14:09:01 10/11/2024 text/html Patient is here [...] last year. Typically has nocturia x 0-1. AZAM BLACK MD [address] [place] [address], [phone], [facility] 10/11/2024 09:29:23 01/22/2025 text/html 74-year-old male presenting for my evaluation of gross hematuria. He has a history of hematuria with negative cystoscopy with Dr. Gonzalez 3.5 years ago, benign prostatic hyperplasia, and erectile dysfunction. Current hematuria is intermittent with dark clots, no dysuria reported. Patient endorses a significant smoking history and states he quit 18 years ago after 40-45 years of smoking. PSA levels checked by his PCP and stable per his report. JEN JI PA-C [address] [place], [address], [facility] 01/24/2025 14:21:26
--- OUTSIDE RECORDS SUMMARY | 2025-05-21 10:55 | XMS_ITS | Clinical Summary ---
Author Organization [facility] Address [address] [place] [address] Care Team Providers Care Audiologist Name Role Phone John Candelaria MD Primary Care Provider [phone] Allergies Active Allergy Reactions Criticality Noted Date Comments Cyclobenzaprine Other - please docum ent in the comment field Low 03/03/2020 Oxycodone Other - please docum ent in the comment field Low 03/03/2020 Medications Aspirin Buf,CaCarb-MgCa rb-MgO, 81 MG tablet 5 Active DOXYLAMINE SUCCINATE, SLEEP, PO 5 Active meloxicam (Mobic) 15 MG tablet 5 Active omeprazole (PriLOSEC) [address] capsule 5 Active traZODone (Desyrel) 150 MG tablet 5 Active valsartan-hydro CHLOROthiazide (Diovan-HCT) 80-12.5 MG tablet 5 Active simvastatin (Zocor) 20 MG tablet Take 20 mg by mouth 1 (one) time each day in the evening. 1 Active metFORMIN (Glucophage) 500 MG tablet TAKE 2 TABLETS BY MOUTH ONCE DAILY WITH A MEAL 1 Active diazePAM (Valium) 10 MG tablet TAKE ONE TABLET BY MOUTH 1 HOUR PRIOR TO PROCEDURE 1 Active TURMERIC PO Take by mouth. Act susana Active Problems Problem Noted Date Diagnosed Date Retrolisthesis 11/24/2020 Lumbar spondylosis 11/19/2020 Lumbar foraminal stenosis 07/27/2020 Spondylolisthesis 07/27/2020 Lumbar radiculitis 04/07/2020 Multilevel degenerative disc disease 03/03/2020 Status post unicompartmental knee replacement, r ight 09/15/2015 Osteoarthritis of right knee 07/16/2015 Immunizations Immunization Administration Dates Next Due Hep A, Adult 01/24/2019 Influenza, high-dose, quadrivalent 05/06/2016 [facility] [place] COVID-19 Vaccine (Purple Cap) 12 + 09/25/2020,09/01/2020 Pneumococcal Polysaccharide PPV23 05/06/2016 Zoster, Recombinant 01/24/2019 Family History Medical History Relation Name Comments COPD Father Cardiac disorder Father Stroke Mother Relation Name Status Comments Father Mother Social History Tobacco Use Types Packs/Day Years Used Date Smoking Tobacco: Former Smokeless Tobacco: Never Alcohol Use Standard Drinks/Week Comments Yes 0 (1 standard drink = 0.6 oz pur e alcohol) Sex and Gender Information Value Date Recorded Sex Assigned at Not on file Legal Sex Male 8:39 PM EDT Gender Identity Not on file Sexual Orientation Not on file Last Filed Vital Signs Vital Sign Reading Time Taken Comments Blood Pressure 125/81 07/20/2021 3:30 PM EST Pulse 76 07/20/2021 3:30 PM EST Temperature 36.6 C (97.8 F) 03/16/2021 9:58 AM EDT Respiratory Rate 16 07/20/2021 3:30 PM EST Oxygen Saturation 95% 02/24/2021 9:18 AM EDT Inhaled Oxygen Concentration - - Weight 97.5 kg (215 lb) 07/20/2021 3:30 PM EST Height 175.3 cm (5' 9 ) 07/20/2021 3:30 PM EST Body Mass Index 31.75 07/20/2021 3:30 PM EST Plan of Treatment Health Maintenance Due Date Last Done Comments [facility]-Depression Screening 1950 [facility]-Hepatitis C Screening 1950 [facility]-Medicare Annual Wellness (AWV) 1950 [facility]-Infant/Child/Adol SDOH Screenings 1950 [facility]- SDOH Screenings 02/20/1968 [facility]-Adult SDOH Screenings 02/20/1968 [facility]-DTaP,Tdap,and Td Vaccine s (1 - Tdap) 1969 CT Colonography 1995 Colonoscopy 1995 FIT-DNA 1995 FIT 1995 FOBT 1995 Sigmoidoscopy 1995 [facility]-Colorectal Cancer Screening 1995 [facility]-Pneumococcal Vaccine: 50 + Years (2 of 2 - PCV) 05/06/2017 05/06/2016 [facility]-Zoster Vaccines (2 of 2) 03/21/2019 01/24/2019 [facility]-RSV Vaccine: 60+ Years o r (1 - 1-dose 75+ series) 2025 [id number]-PHCHD-63 Vaccine (4 - 2024- season) 2025 04/07/2021, 09/25/2020, 09/01/2020 [facility]-Influenza Vaccine (#1) 2025 05/06/2016 [facility]-Hepatitis A Vaccines Aged Out 01/24/2019 No longer eligible based on patient's age to complete this topic HPV Vaccines Aged Out No longer eligi ble based on patient's age to complete this topic [facility]-HIB Vaccines Aged Out No longer e ligible based on patient's age to complete this topic [facility]-IPV Vaccines Aged Out No longer e ligible based on patient's age to complete this topic [facility]-Rotavirus Vaccines Aged Out No lo nger eligible based on patient's age to complete this topic Insurance Care Teams Audiologist Relationship Specialty Start Date End Date John Candelaria MD [address] [place] [id number] [facility] - General 12/11/20
== END 2025-05-19 23:59 ==
LOC: LAB.DROPOF 05-21 10:39
PROVIDERS: PCP Family Medicine; Visit Provider Family Medicine
DX: E11.9 Type 2 diabetes mellitus without complications (principal)
CPT/HCPCS: 80053; 80061; 82043; 82570; 83036